=== PATIENT | male | born 1940 | race Caucasian/White ===

== ENCOUNTER 2021-07-25 09:47 | Emergency (ER) | payer MEDICARE, SELFPAY ==
--- NOTE | 2021-07-25 21:23 | EDS_ITS ---
HPI History of Present Illness Chief Complaint: Abscess Detail of Chief Complaint: Patient presents with an abscess to his back that he noted today Informant: patient Narrative Narrative: Patient presents to the emergency department concerned about a abscess to his back. Patient noticed some redness to the area and some mild discomfort. He is concerned about infection because he has a history of AML and is scheduled to receive a stem cell transplant at [facility] next week. Patient denies any fevers. Denies other illness. Prior similar symptoms: No ROS ROS ED Constitutional Constitutional ED: Reports systems reviewed and no addt'l complaints, except as documented; Denies body ache(s), change in weight or chills Eyes Eyes: Denies acute decrease in peripheral vision, change in vision, double vision or loss of vision ENT ENT ED: Reports none; Denies ear pain, lip swelling, loss taste/smell, neck pain, otalgia or sore throat Cardiovascular Cardiovascular: Reports none; Denies abdominal pain, chest pain with activity, leg edema, lightheadedness, palpitations, rapid heart rate or syncope Respiratory/Chest Respiratory/Chest: Reports none; Denies change in mental status, dry cough, dyspnea, hemoptysis, shortness of breath at rest or shortness of breath with exertion Gastrointestinal Gastrointestinal: Reports none; Denies abdominal pain, change in stool character, diarrhea, hematemesis, hematochezia, melena, rectal bleeding or vomiting Genitourinary Genitourinary ED: Reports none; Denies abdominal discomfort, anuria, dysuria, genital pain or polyuria Musculoskeletal Musculoskeletal: Reports none; Denies arthralgias, back pain, difficulty walking, extremity pain, muscle weakness or myalgias Integumentary Reports none, abscess and other Details: Abscess the back ; Denies rash Neurologic Neurologic: Reports none; Denies abnormal gait, confusion, focal weakness, frequent falls, headache(s), loss of vision, numbness, paresthesias, radicular pain, vertigo or weakness Psychiatric Psychiatric: Reports systems reviewed and no addt'l complaints, except as documented and none; Denies behavioral changes, confusion, difficulty concentrating, hallucinations, suicidal ideation, tactile hallucinations or visual hallucinations Endocrine Endocrinology: Denies none, cold intolerance, excessive sweating, fatigue or heat intolerance Hematologic/Lymphatic Hematologic/Lymphatic: Reports none; Denies anemia, easy bleeding or easy bruising Allergic/Immunologic Allergic/Immunologic ED: Denies as per HPI, none, lip swelling, mouth swelling, throat swelling, tongue swelling or hives EXAM Physical Exam Const Positive well nourished and well developed General Appearance ED: well developed and NAD HEENT Reports TM's clear and moist mucous membranes normocephalic and atraumatic; Negative for trauma or tenderness Tympanic Membrane ED: Yes TM's clear Eyes PERRL and EOMs intact bilaterally General Eye ED: Negative for pale conjunctiva or scleral icterus Neck no lymphadenopathy, supple and no JVD General: Negative for tenderness Chest Wall inspection of chest normal and palpation of chest normal Chest: Negative for tenderness Resp normal respiratory effort and clear to auscultation bilaterally Effort and Inspection: Negative for respiratory distress or pain with movement Auscultation: Negative for rhonchi, wheezes or diminished lung sounds Cardio regular rate, regular rhythm, S1 normal heart sound, S2 normal heart sound and no murmurs Peripheral Pulses: pulses 2+ throughout GI normal to inspection, nondistended, normoactive bowel sounds, soft to palpation, non-tender, non-distended and no masses Back/Spine no thoracic nor lumbar tenderness Back/Spine Narrative: Evaluation of his back reveals a sebaceous cyst over the mid thoracic spine that measures approximately 3 cm in diameter. There are some faint erythema inferior to this. There is some drainage noted from the central portion of the sebaceous cyst. With pressure I was able to express a large amount of purulent debris from the sebaceous cyst. Extremity normal to inspection General Extremety ED: Negative for edema General Extremity: Negative for edema Neuro oriented x3, CN's II-XII intact bilaterally, no sensory deficits noted and gait normal Sensorium / Orientation: awake, alert, oriented to person, oriented to place and oriented to time Motor Exam: strength 5/5 throughout and strength abnormal Psych mental status grossly normal Skin no rashes or lesions noted and no wounds MDM MDM MDM Narrative Medical decision making narrative: Patient has a sebaceous cyst that appears to be infected. I was able to express a large amount of purulent debris with just pressure. I did start patient on Keflex. Patient advised to let his physicians know about his visit today and the fact that he is on antibiotics. Patient advised to return if fever, increased pain, swelling, or condition should worsen anyway. Discharge Plan Triage Chief Complaint: Abscess ED Provider: Ungur,Remus Dx/Rx/DC Orders Clinical Impression: Infected sebaceous cyst Instructions: ED Abscess Incision And Drainage Primary Care Provider: Care Physician,No Primary Referrals: Care Physician,No Primary [Primary Care Provider] - Disposition Disposition: Home, Self Care
== END 2021-07-25 10:42 | disposition home or self-care (01) ==
PROVIDERS: Emergency Provider Emergency Medicine; Visit Provider Emergency Medicine
DX: L72.3 Sebaceous cyst (principal); C92.00 Acute myeloblastic leukemia, not having achieved remission
CPT/HCPCS: 99283

== ENCOUNTER → 2021-11-23 | Outpatient (CLI) | payer MEDICARE, SELFPAY | END | disposition home or self-care (01) | DX: C92.01 Acute myeloblastic leukemia, in remission (principal) | CPT/HCPCS: 96521 ==

== ENCOUNTER → 2021-12-07 | Outpatient (CLI) | payer MEDICARE, SELFPAY | END | disposition home or self-care (01) | LOC: MEDOUTP 08:54 | DX: C92.01 Acute myeloblastic leukemia, in remission (principal) | CPT/HCPCS: 96521 ==

== ENCOUNTER 2022-02-07 11:46 | Inpatient (IN) | payer MEDICARE, SELFPAY ==
[2022-02-07] VITALS (15 sets, daily range): BP systolic 130–165; BP diastolic 64–110; PULSE 78–97; RESP 16–18; TEMP 36.4–37.2; O2SAT 93–96; BMI 24.1; BMI 23.4
--- NOTE | 2022-02-07 11:50 | EKG12_ITS ---
Test Reason : POSS STROKE Blood Pressure : / mmHG Vent. Rate : 092 BPM Atrial Rate : 092 BPM P-R Int : 172 ms QRS Dur : 076 ms QT Int : 362 ms P-R-T Axes : 023 -43 030 degrees QTc Int : 447 ms Normal sinus rhythm Left axis deviation Inferior infarct , age undetermined Abnormal ECG No previous ECGs available Confirmed by REN BETHEA, SELIN ([id number]), legal editor ROBERT HUNTER ([id number]) on 02/09/2022 1:10:57 PM Referred By: Josué Beth Confirmed By:SELIN MCCLURE MD
--- NOTE | 2022-02-07 11:50 | CT_ITS ---
STUDY: CT HEAD STROKE PROTOCOL W/O CONTRAST INJECTION REASON FOR EXAM: Male, 82 years old. Neuro deficit, acute, stroke suspected RADIATION DOSAGE (If Supplied By Facility): CTDIvol = ( 44.99 ) mGy, DLP = ( 829.85 ) mGycm TECHNIQUE: Transaxial CT imaging of the brain was performed without administration of intravenous contrast material. Individualized dose optimization techniques were used for this CT. COMPARISON: No relevant priors. FINDINGS: Normal soft tissue structures. Normal calvarium. There is mild cerebral atrophy with widening of the extra-axial spaces and ventricular dilatation. Normal white matter tracts of the cerebral hemispheres. Focal area of decreased attenuation in the insular cortex of the right temporal lobe. Normal brainstem. There is mild cerebellar atrophy. There is no intracranial hemorrhage. There are no findings of an acute ischemic infarction. Atherosclerotic plaque formation of the cavernous portions of the internal carotid arteries bilaterally. Cavum septum lucidum. Normal visualized paranasal sinuses. ASPECT score: 9 CT/STROKE Brain/Head without Cont IMPRESSION: Chronic involutional changes of the brain. Focal area of decreased attenuation in the insular cortex of the right temporal lobe. N.B. : The above Results were Read Back by Brian Mcfarlane MD to Josué Ricci and understanding confirmed on 02/07/2022 12:06:06 (ET). Electronically Signed: Brian Mcfarlane MD at 12:07 EST ,
--- NOTE | 2022-02-07 11:51 | CT_ITS ---
STUDY: CTA HEAD AND NECK WITH CONTRAST REASON FOR EXAM: Male, 82 years old. Neuro deficit, acute, stroke suspected RADIATION DOSAGE (If Supplied By Facility): CTDIvol = ( 19.81 ) mGy, DLP = ( 740.65 ) mGycm TECHNIQUE: CT angiography was performed with a multi-detector CT scanner. Data acquisition was obtained from the skull base through the vertex following intravenous administration of IV 100mL [id number]-370. MIP images were reconstructed from the axial data set. Post-processing of the angiographic images was performed, with multiplanar reformation and 3D reconstruction. Individualized dose optimization techniques were used for this CT. COMPARISON: No relevant priors. FINDINGS: Normal bilateral petrous carotid arteries. There is calcified plaque formation of the right cavernous carotid artery, without a cross-sectional luminal stenosis. There is calcified plaque formation of the left cavernous carotid artery, without a cross-sectional luminal stenosis. Normal right A1 segments of the anterior cerebral artery. Normal left A1 segments of the anterior cerebral artery. Normal intact anterior communicating artery (ACOM). Normal bilateral A2 segments of the anterior cerebral arteries. Normal right M1 and M2 segments of the middle cerebral arteries, with a normal M1 bifurcation. Normal left M1 and M2 segments of the middle cerebral arteries, with a normal M1 bifurcation. Normal right posterior communicating artery (PCOM). Normal left posterior communicating artery (PCOM). Normal bilateral vertebral arteries. Normal basilar artery with a normal basilar bifurcation. The visualized bilateral superior cerebellar (SCA) arteries are normal. Normal bilateral P1, P2 and visualized P3 segments of the posterior cerebral arteries. There is no demonstrated aneurysm of the jena of Estevez. AORTIC ARCH: There is atherosclerotic calcific plaque formation of the aortic arch and great vessels arising from the aortic arch, without a hemodynamically significant stenosis. There is a normal origin of the brachiocephalic, left common carotid, and left subclavian arteries. Atherosclerotic plaque formation at the origin of the left internal carotid artery and left subclavian artery. RIGHT CAROTID ARTERIES: Normal right common carotid artery (CCA). Normal right common carotid bulb. There is mild atherosclerotic plaque formation of the origin of the right internal carotid artery with less than 50% cross sectional diameter stenosis. Normal visualized cervical portion of the right internal carotid artery. Normal origin of the right external carotid artery (ECA). LEFT CAROTID ARTERIES: Normal left common carotid artery (CCA). Normal left common carotid bulb. There is mild atherosclerotic plaque formation of the origin of the left internal carotid artery with less than 50% cross sectional diameter stenosis. Normal visualized cervical portion of the left internal carotid artery. Normal origin of the left external carotid artery (ECA). VERTEBRAL ARTERIES: Normal bilateral vertebral arteries. CT/STROKE CTA Head AND Neck W/Con IMPRESSION: Mild degree of bilateral scrotal compartment formation at the origin of the right and left internal carotid arteries. N.B. : The above Results were Read Back by Brian Mcfarlane MD to Josué Ricci and understanding confirmed on 02/07/2022 12:23:47 (ET). Electronically Signed: Brian Mcfarlane MD at 12:24 EST ,
--- NOTE | 2022-02-07 11:51 | ED.VIS.STROK ---
HPI History of Present Illness Chief Complaint: Neuro S/Sx Informant: patient Onset/Context/Timing Onset: Today Context: Sudden Onset Quality and Location: Positive for Left Arm Parasthesia and Left Arm Weakness (Hand) Onset: 10:30 AM Worsened by: Nothing Relieved by: Nothing Associated Symptoms Associated Symptoms: Negative for Headache, Nausea, Vomiting or Chest Pain Narrative Narrative: Patient presents with stroke symptoms that began this morning. Patient states he was sitting at a computer at 10:30 AM and fell asleep. Patient states that he was only asleep for a few minutes but when he woke up he had difficulty using his left hand. Patient states this has been persistent. Patient also admits to some left facial weakness. Patient denies any headaches. Patient denies any chest pain or shortness of breath. Patient denies any nausea or vomiting. Patient denies any weakness or difficulty using his left lower extremity. Patient denies any weakness on the right side. [facility] Medical History (Updated 02/07/22 @ 14:[address] Josué Ricci, DO) History of acute myeloid leukemia Home Medications acyclovir 800 mg tablet 800 mg PO BID Check with primary doctor 12/30/21 [History Last Taken 02/07/22] atovaquone 750 mg/5 mL oral suspension 750 mg PO DAILY chest 12/30/21 [History Last Taken 02/07/22] budesonide 3 mg capsule,delayed,extended release 3 mg PO DAILY GI 12/30/21 [History Last Taken 02/07/22] buprenorphine 20 mcg/hour weekly transdermal patch 1 patch transdermal Q7D hip 12/30/21 [History Last Taken 02/02/22] calcium carbonate 600 mg-vitamin D3 10 mcg (400 unit) chewable tablet (Calcium 600 with Vitamin D3) 1 tab PO DAILY supplement 12/30/21 [History Last Taken 02/07/22] carvedilol 6.25 mg tablet 6.25 mg PO BID heart 12/30/21 [History Last Taken 02/07/22] cholecalciferol (vitamin D3) 25 mcg (1,000 unit) capsule 25 mcg PO DAILY supplement 12/30/21 [History Last Taken 02/07/22] diclofenac sodium 1 % topical gel 4 g topical ONCE joint pain 12/30/21 [History Last Taken 02/07/22] hydrocodone 10 mg-acetaminophen 325 mg tablet 1 tab PO Q4H PRN PRN Pain 12/30/21 [History Last Taken 02/07/22] lidocaine HCl 4 % topical patch 1 patch topical DAILY PRN hip 12/30/21 [History Last Taken 02/07/22] magnesium oxide-magnesium amino acid chelate 133 mg tablet 133 mg PO TID supplement 12/30/21 [History Last Taken 02/07/22] peg 3350 17 gram/scoop-sodium chloride-potassium citrate oral kit 1 ea PO DAILY constipation 12/30/21 [History Last Taken Unknown] pravastatin 10 mg tablet 10 mg PO DAILY cholesterol 12/30/21 [History Last Taken 02/06/22] rivaroxaban 10 mg tablet 10 mg PO DAILY blood thinner 12/30/21 [History Last Taken 02/06/22] tacrolimus 0.5 mg capsule, immediate-release 1 mg PO BID Stem cell 12/30/21 [History Last Taken 02/07/22] tamsulosin 0.4 mg capsule 0.4 mg PO DAILY bladder 12/30/21 [History Last Taken 02/07/22] vitamin B complex (B Complex-Vitamin B12 tablet) 1 tab PO DAILY supplement 12/30/21 [History Last Taken 02/07/22] Allergy/AdvReac Type Severity Reaction Status Date / Time Sulfa (Sulfonamide Allergy Other Verified 12/30/21 14:24 Antibiotics) Surgical History (Updated 02/07/22 @ 11:[address] Josué Ricci DO) H/O stem cell transplant Social History Smoking Status: Never smoker ROS ROS ED Constitutional Constitutional ED: Denies chills or fever(s) Eyes Eyes: Denies blurry vision or change in vision ENT ENT ED: Denies rhinorrhea or sore throat Cardiovascular Cardiovascular: Denies chest pain or palpitations Respiratory/Chest Respiratory/Chest: Denies cough or dyspnea Gastrointestinal Gastrointestinal: Denies nausea or vomiting Genitourinary Genitourinary ED: Denies dysuria or hematuria Musculoskeletal Musculoskeletal: Denies back pain or neck pain Integumentary Denies abscess or rash Neurologic Neurologic: Reports weakness; Denies headache(s) Allergic/Immunologic Allergic/Immunologic ED: Denies mouth swelling or urticaria EXAM Physical Exam Const Vital Signs: 02/07/22 11:48 02/07/22 12:03 02/07/22 12:03 Temperature 97.8 F Temperature Source Temporal Pulse Rate 93 Respiratory Rate 18 Blood Pressure 146/110 H 157/91 H Blood Pressure Mean 122 113 Pulse Ox 96 96 Oxygen Delivery Method Room Air Room Air 02/07/22 12:06 02/07/22 12:30 02/07/22 13:00 Temperature 97.6 F L Temperature Source Temporal Pulse Rate 94 89 85 Respiratory Rate 18 16 17 Blood Pressure 165/95 H 136/91 H Blood Pressure Mean 118 106 Pulse Ox 96 96 95 Oxygen Delivery Method Room Air Room Air Room Air 02/07/22 13:00 02/07/22 13:30 02/07/22 14:00 Temperature Temperature Source Pulse Rate 80 88 Respiratory Rate 17 18 Blood Pressure 130/74 H 146/87 H Blood Pressure Mean 92 106 Pulse Ox 95 96 95 Oxygen Delivery Method Room Air Room Air Room Air Positive well nourished and well developed General Appearance ED: well developed and NAD HEENT Reports moist mucous membranes atraumatic Neck supple and no JVD Resp normal respiratory effort and clear to auscultation bilaterally Cardio Rate: regular rate Rhythm: regular rhythm GI normal to inspection, nondistended, normoactive bowel sounds, soft to palpation and non-tender Extremity normal to inspection Neuro oriented x3 and CN's II-XII intact bilaterally [place] Coma Scale: document GCS findings Spontaneous Obeys Commands Oriented 15 Sensorium / Orientation: alert Speech: speech normal NIHSS NIHSS Initial: 1a Level of Consciousness: 0 1b LOC Questions (Score 2 if aphasic/stupor): 0 1c LOC Commands (Only score 1st attempt): 0 2 Best Gaze (If aphasic, use reflexive mvmts.): 0 3 Visual: 0 4 Facial Palsy: 1 5 Motor Arm Right (UN = amputation/fusion): 0 5 Motor Arm Left: 1 6 Motor Leg Right: 0 6 Motor Leg Left: 0 7 Limb ataxia (Only + if out of proportion): 0 8 Sensory (Aphasia/stupor=0 or 1, coma=2): 0 9 Best Language: 0 10 Dysarthria (mute, coma=2, intubated=UN): 0 11 Extinction and Inattention (only scored if +): 0 Total Score: 2 MDM MDM MDM Narrative Medical decision making narrative: Stroke alert was called. CT scan of the brain was obtained. There is a focal area of decreased attenuation in the insular cortex of the right temporal lobe. This was interpreted by the radiologist and reviewed by myself. CTA of the head and neck was obtained. There is mild atherosclerotic plaque of the bilateral internal carotids less than 50%. There is no acute large vessel occlusion. EKG was obtained. On my interpretation, it showed a normal sinus rhythm with a rate of 92. LA interval, QRS interval, and QTc intervals were all normal. There is left axis deviation at -43. There are no acute ST or T wave changes. CBC shows a mild anemia with a hemoglobin of 9.5 and hematocrit 29.1. White blood cell count was within normal limits. Basic metabolic profile showed a sodium of 135. High-sensitivity troponin was normal at 30. Initial BGT was 145. PT was 15.8. INR is 1.3. PTT is 31.3. Portable 1 view chest x-ray was obtained. On my interpretation, lung ozuna show scarring at the lung bases bilaterally, worse on the left. There is normal cardiac silhouette. Bony thorax is normal. There is no acute process noted. Radiologist also interpreted the x-ray and agrees. Patient is not a candidate for thrombolytic therapy due to the low NIH plus he is on Xarelto. Patient was evaluated by stroke neurology from [facility]. They recommended admission to the hospital here for further evaluation and MRI. Patient and are agreeable with this. Case was discussed with the hospitalist. She will admit the patient to PCU. Case was also discussed with his provider at the [facility]. She stated that the patient will be able to take all of his medications that he normally takes at home. She states that none of his medications need to be adjusted at this time. Lab Data Attestation: I reviewed the patient's lab results. Labs: Laboratory Results - last 24 hr 02/07/22 02/07/22 02/07/22 11:47 11:55 11:55 WBC 8.2 RBC 2.96 L Hgb 9.5 L Hct 29.1 L MCV 98.3 H MCH 32.1 H MCHC 32.6 RDW Std Deviation 56.0 H RDW Coeff of Demario 15.6 H Plt Count 332 MPV 8.6 Immature Gran % (Auto) 3.200 H Neut % (Auto) 81.1 H Lymph % (Auto) 6.8 L Gilmer % (Auto) 5.6 Eos % (Auto) 2.8 Baso % (Auto) 0.5 Absolute Neuts (auto) 6.7 Absolute Lymphs (auto) 0.56 L Nucleated RBC % 0 Differential Comment COMMENT PT INR APTT Sodium 135 L Potassium 4.1 Chloride 105 Carbon Dioxide 25.0 Anion Gap 5 BUN 26 H Creatinine 1.12 Estim Creat Clear Calc 50.89 Est GFR (MDRD) Af Amer 81 Est GFR (MDRD) Non-Af 67 BUN/Creatinine Ratio 23.2 H Glucose 142 H Calcium 8.6 Troponin I High Sens 30 POC Glucose 145 H 02/07/22 12:04 WBC RBC Hgb Hct MCV MCH MCHC RDW Std Deviation RDW Coeff of Demario Plt Count MPV Immature Gran % (Auto) Neut % (Auto) Lymph % (Auto) Gilmer % (Auto) Eos % (Auto) Baso % (Auto) Absolute Neuts (auto) Absolute Lymphs (auto) Nucleated RBC % Differential Comment PT 15.8 H INR 1.3 APTT 31.3 Sodium Potassium Chloride Carbon Dioxide Anion Gap BUN Creatinine Estim Creat Clear Calc Est GFR (MDRD) Af Amer Est GFR (MDRD) Non-Af BUN/Creatinine Ratio Glucose Calcium Troponin I High Sens POC Glucose Radiography Diagnostic Testing: Clinical Impression(s) from Imaging Studies Brain CT 02/07/22 11:50 IMPRESSION: Chronic involutional changes of the brain. Focal area of decreased attenuation in the insular cortex of the right temporal lobe. N.B. : The above Results were Read Back by Brian Mcfarlane MD to Josué Ricci and understanding confirmed on 02/07/2022 12:06:06 (ET). Electronically Signed: Brian Mcfarlane MD at 12:07 EST , ADDENDUM: 02/07/22 1214 IMPRESSION: Chronic involutional changes of the brain. Focal area of decreased attenuation in the insular cortex of the right temporal lobe. N.B. : The above Results were Read Back by Brian Mcfarlane MD to Josué Ricci and understanding confirmed on 02/07/2022 12:06:06 (ET). Electronically Signed: Brian Mcfarlane MD at 12:07 EST , Head/Neck CTA 02/07/22 11:51 IMPRESSION: Mild degree of bilateral scrotal compartment formation at the origin of the right and left internal carotid arteries. N.B. : The above Results were Read Back by Brian Mcfarlane MD to Josué Ricci and understanding confirmed on 02/07/2022 12:23:47 (ET). Electronically Signed: Brian Mcfarlane MD at 12:24 EST , ADDENDUM: 02/07/22 1231 IMPRESSION: Mild degree of bilateral scrotal compartment formation at the origin of the right and left internal carotid arteries. N.B. : The above Results were Read Back by Brian Mcfarlane MD to Josué Ricci and understanding confirmed on 02/07/2022 12:23:47 (ET). Electronically Signed: Brian Mcfarlane MD at 12:24 EST , Chest X-Ray 02/07/22 12:55 IMPRESSION: 5 suggestive scarring at the left lung base with areas of bronchiectasis. Findings also suggest some scarring in the peripheral lateral aspect of the right lung. Electronically Signed: Brian Mfcarlane MD at 13:17 EST , EKG Initial EKG: Attestation: I personally reviewed and interpreted this EKG as follows: Interpretation: Sinus Rhythm (92) and No Acute Injury Pattern Prior EKG tracings: not available for review Prior: No Prior Critical Care Time Critical Care Time: Yes Critical care time (excluding procedures): 30-74 minutes (33), Including time spent:, Discussing w/Patient &/or Family/Material Reprocessing Associate, Discussing w/Consultants, Arranging Admission or Transfer and Performing Direct Patient Care at Bedside Discharge Plan Dx/Rx/DC Orders Clinical Impression: Stroke, Leukemia Disposition Disposition: Acute Care Hospital [facility]
[2022-02-07 12:02] LABS: Absolute Lymphocyte Count 0.56 X10^3/uL (0.83-4.51); Absolute Neutrophil Count 6.7 X10^3/uL (2.0-7.7); Basophil# 0.04 X10^3/uL; Basophil% 0.5 % (0-1); Differential Indicated SCAN CRITERIA MET; Eosinophil# 0.23 X10^3/uL; Eosinophils% 2.8 % (0-5); Hematocrit 29.1 % (40-54); Hemoglobin 9.5 g/dL (13.0-16.5); Lymphocyte # 0.56 X10^3/ul (0.83-4.51); Lymphocyte % 6.8 % (19-41); Mean Corp Hgb Conc 32.6 g/dL (32-36); Mean Corpuscular Hgb 32.1 pg (27.0-32.0); Mean Corpuscular Volume 98.3 fL (80-94); Mean Platelet Vol. 8.6 fl (6.2-12.0); Monocyte# 0.46 X10^3/uL; Monocyte% 5.6 % (0-10); NRBC Flagged by Analyzer 0 % (0-5); Neutrophil # 6.68 X10^3/uL (2.7-7.7); Neutrophil % 81.1 % (47-70); POSITIVE DIFFERENTIAL YES; Platelet Count 332 K/mm3 (150-450); RBC Distribution Width CV 15.6 % (11.6-14.6); Red Blood Count 2.96 M/mm3 (4.6-6.2); White Blood Count 8.2 K/mm3 (4.4-11.0)
--- NOTE | 2022-02-07 12:06 | CM.ED ---
SW Note SW responded to Stroke Alert. Introduced this typewriter tester to patient's , who was in the room. Emotional support provided. SW remains available if needs arise. Julia MARQUEZ
[2022-02-07 12:17] LABS: Anion Gap 5 (5-15); BUN 26 mg/dL (7-18); BUN/Creat Ratio 23.2 RATIO (10-20); Calcium,Total 8.6 mg/dL (8.5-10.1); Chloride 105 mmol/L (98-107); Creatinine, Serum 1.12 mg/dL (0.70-1.30); EST Glomerular Filtration Rate 67 mL/min (>60); Est Glom Filt Rate - Afr Amer 81 mL/min (>60); Estimated Creatinine Clearance 50.89 ml/min; Glucose 142 mg/dL (74-106); Potassium 4.1 mmol/L (3.5-5.1); Sodium Level 135 mmol/L (136-145); Troponin-I HS 30 pg/mL (3.0-78.0)
[2022-02-07 12:20] LABS: International Normalized Ratio 1.3; Prothrombin Time (Protime)PT. 15.8 SECONDS (11.7-14.9)
[2022-02-07 12:21] LABS: Partial Thromboplast Time 31.3 Seconds (24.1-36.2)
--- NOTE | 2022-02-07 12:55 | RAD_ITS ---
STUDY: X-RAY CHEST REASON FOR EXAM: Male, 82 years old. Neuro deficit, acute, stroke suspected TECHNIQUE: Single AP portable view of the chest. COMPARISON: None. FINDINGS: EKG electrodes are seen. Elevation of the right hemidiaphragm. There are increased markings at the left lung base. This is suggestive scarring with bronchiectasis. Mild increased markings are also seen in the peripheral lateral aspect of the right lung. Normal size heart. Normal mediastinum and lesley. Normal visualized pulmonary arteries. There is atherosclerotic calcification of the aortic arch with tortuosity. There are diffuse degenerative changes of the visualized thoracic spine. There is degenerative osteoarthritis of the bilateral shoulders. There is no demonstrated abnormality of the visualized soft tissue structures of the upper abdomen. RAD/Chest 1 View IMPRESSION: 5 suggestive scarring at the left lung base with areas of bronchiectasis. Findings also suggest some scarring in the peripheral lateral aspect of the right lung. Electronically Signed: Brian Mcfarlane MD at 13:17 EST ,
[2022-02-07 13:20] LABS: Bedside Glucose 145 mg/dL (74-106)
--- NOTE | 2022-02-07 14:24 | PCM.HP.STD ---
HPI - General General Date of Admission: 02/07/22 Date of Service: 02/07/22 Chief Complaint: Left upper extremity numbness - 1 day HPI Narrative MELLO SOLIZ, is a 82 M who presents above. Patient has past medical history of leukemia status post stem cell transplant, on tacrolimus, h/o VTE, on Xarelto, who was in his usual state of health until this morning(about 10:30 AM) when whilst he was sitting by his computer for a Zoom meeting, he fell asleep. Patient stated that he fell asleep for a few minutes. He woke up and had tingling numbness in his left upper extremity as well as a left facial droop. This lasted for few minutes and then went away. At the time of being seen, patient denied any tingling or numbness. His initial vitals in the ED showed blood pressure 146/110, heart rate 93, respiratory rate 18, temperature 97.8 F, oxygen sat was 96% on room air. His WBC count 8.2, hemoglobin 9.5, platelet count was 332. Sodium was 135 potassium 4.1, chloride 105, Coumadin 5, BUN 26, creatinine 1.12, no previous creatinine to compare. Troponin is 30. EKG shows normal sinus rhythm, no acute ST-T changes. Initial brain CT showed a focal area of decreased attenuation in the insular cortex of the right temporal lobe. CTA of the neck shows mild plaque less than 50% in the right internal carotid artery. Chest x-ray shows areas of scarring in the left lung base with bronchiectasis as well as the peripheral lateral aspect of the right lung. [facility] Medical History History of acute myeloid leukemia Home Medications acyclovir 800 mg tablet 800 mg PO BID Check with primary doctor 12/30/21 [History Last Taken 02/07/22] atovaquone 750 mg/5 mL oral suspension 750 mg PO DAILY chest 12/30/21 [History Last Taken 02/07/22] budesonide 3 mg capsule,delayed,extended release 3 mg PO DAILY GI 12/30/21 [History Last Taken 02/07/22] buprenorphine 20 mcg/hour weekly transdermal patch 1 patch transdermal Q7D hip 12/30/21 [History Last Taken 02/02/22] calcium carbonate 600 mg-vitamin D3 10 mcg (400 unit) chewable tablet (Calcium 600 with Vitamin D3) 1 tab PO DAILY supplement 12/30/21 [History Last Taken 02/07/22] carvedilol 6.25 mg tablet 6.25 mg PO BID heart 12/30/21 [History Last Taken 02/07/22] cholecalciferol (vitamin D3) 25 mcg (1,000 unit) capsule 25 mcg PO DAILY supplement 12/30/21 [History Last Taken 02/07/22] diclofenac sodium 1 % topical gel 4 g topical ONCE joint pain 12/30/21 [History Last Taken 02/07/22] hydrocodone 10 mg-acetaminophen 325 mg tablet 1 tab PO Q4H PRN PRN Pain 12/30/21 [History Last Taken 02/07/22] lidocaine HCl 4 % topical patch 1 patch topical DAILY PRN hip 12/30/21 [History Last Taken 02/07/22] magnesium oxide-magnesium amino acid chelate 133 mg tablet 133 mg PO TID supplement 12/30/21 [History Last Taken 02/07/22] peg 3350 17 gram/scoop-sodium chloride-potassium citrate oral kit 1 ea PO DAILY constipation 12/30/21 [History Last Taken Unknown] pravastatin 10 mg tablet 10 mg PO DAILY cholesterol 12/30/21 [History Last Taken 02/06/22] rivaroxaban 10 mg tablet 10 mg PO DAILY blood thinner 12/30/21 [History Last Taken 02/06/22] tacrolimus 0.5 mg capsule, immediate-release 1 mg PO BID Stem cell 12/30/21 [History Last Taken 02/07/22] tamsulosin 0.4 mg capsule 0.4 mg PO DAILY bladder 12/30/21 [History Last Taken 02/07/22] vitamin B complex (B Complex-Vitamin B12 tablet) 1 tab PO DAILY supplement 12/30/21 [History Last Taken 02/07/22] Allergy/AdvReac Type Severity Reaction Status Date / Time Sulfa (Sulfonamide Allergy Other Verified 12/30/21 14:24 Antibiotics) Family History no significant family his no significant family history Surgical History H/O stem cell transplant Social History (Updated 02/07/22 @ 15:[address] Vicenta Sullivan MD) Smoking Status: Never smoker alcohol intake: former substance use type: does not use ROS ROS Narrative Constitutional: Denies: Anorexia, Chills, Fever, Night Sweats, Weight Change Eyes: Denies: Blurred vision, Cataracts, Conjunctivae Inflammation, Pain, Redness, Vision Change HEENT: Denies: Difficulty Hearing, Difficulty Swallowing, Head Aches, Hearing Changes, Sinus Congestion, Sinus Drainage Cardiovascular: Denies: Chest Pain, Orthopnea, Palpitations Respiratory: Denies: Cough, Shortness of breath at rest, Sputum production Gastrointestinal: Denies: Abdominal Pain, Nausea, Vomiting Genitourinary: Denies: Dysuria Musculoskeletal: Denies: Joint Pain, Joint stiffness, Joint swelling, Joint Tenderness Skin: Denies: Rash, Wounds Neurological: See HPI Vital Signs Vital Signs Vital Signs: 02/07/22 11:48 02/07/22 12:03 02/07/22 12:03 Temperature 97.8 F Temperature Source Temporal Pulse Rate 93 Respiratory Rate 18 Blood Pressure 146/110 H 157/91 H Blood Pressure Mean 122 113 Pulse Ox 96 96 Oxygen Delivery Method Room Air Room Air 02/07/22 12:06 02/07/22 12:30 02/07/22 13:00 Temperature 97.6 F L Temperature Source Temporal Pulse Rate 94 89 85 Respiratory Rate 18 16 17 Blood Pressure 165/95 H 136/91 H Blood Pressure Mean 118 106 Pulse Ox 96 96 95 Oxygen Delivery Method Room Air Room Air Room Air 02/07/22 13:00 02/07/22 13:30 02/07/22 14:00 Temperature Temperature Source Pulse Rate 80 88 Respiratory Rate 17 18 Blood Pressure 130/74 H 146/87 H Blood Pressure Mean 92 106 Pulse Ox 95 96 95 Oxygen Delivery Method Room Air Room Air Room Air 02/07/22 14:16 Temperature Temperature Source Pulse Rate Respiratory Rate 18 Blood Pressure Blood Pressure Mean Pulse Ox Oxygen Delivery Method Weight Weight: 71.985 kg Body Mass Index (BMI) 24.1 Physical Exam Narrative Physical exam: General: Alert, Oriented x3, Cooperative, not jaundiced, not pale HEENT: Atraumatic Oral: Moist Mucosa Neck: Supple Lungs: Diminished to auscultation Cardiovascular: HS I+II, regular, no murmurs Abdomen: Bowel Sounds Present, Soft, Non Tender Extremities: No edema Skin: No rashes, No breakdown Neurological: Cranial nerve II to XII intact except for slight left facial droop, otherwise grossly intact Psych/Mental Status: Appropriate Results Lab / Micro Data Result Diagrams: 02/07/22 11:55 02/07/22 11:55 Labs: Laboratory Results - last 24 hr 02/07/22 11:47: POC Glucose 145 H 02/07/22 11:55: WBC 8.2, RBC 2.96 L, Hgb 9.5 L, Hct 29.1 L, MCV 98.3 H, MCH 32.1 H, MCHC 32.6, RDW Std Deviation 56.0 H, RDW Coeff of Demario 15.6 H, Plt Count 332, MPV 8.6, Immature Gran % (Auto) 3.200 H, Neut % (Auto) 81.1 H, Lymph % (Auto) 6.8 L, [place] % (Auto) 5.6, Eos % (Auto) 2.8, Baso % (Auto) 0.5, Absolute Neuts (auto) 6.7, Absolute Lymphs (auto) 0.56 L, Nucleated RBC % 0, Differential Comment COMMENT 02/07/22 11:55: Sodium 135 L, Potassium 4.1, Chloride 105, Carbon Dioxide 25.0, Anion Gap 5, BUN 26 H, Creatinine 1.12, Estim Creat Clear Calc 50.89, Est GFR (MDRD) Af Amer 81, Est GFR (MDRD) Non-Af 67, BUN/Creatinine Ratio 23.2 H, Glucose 142 H, Calcium 8.6, Troponin I High Sens 30 02/07/22 12:04: PT 15.8 H, INR 1.3, APTT 31.[address] 02/07/22 11:50 IMPRESSION: Chronic involutional changes of the brain. Focal area of decreased attenuation in the insular cortex of the right temporal lobe. N.B. : The above Results were Read Back by Brian Mcfarlane MD to Josué Ricci and understanding confirmed on 02/07/2022 12:06:06 (ET). Electronically Signed: Brian Mcfarlane MD at 12:07 EST , ADDENDUM: 02/07/22 1214 IMPRESSION: Chronic involutional changes of the brain. Focal area of decreased attenuation in the insular cortex of the right temporal lobe. N.B. : The above Results were Read Back by Brian Mcfarlane MD to Josué Ricci and understanding confirmed on 02/07/2022 12:06:06 (ET). Electronically Signed: Brian Mcfarlane MD at 12:07 EST , Head/Neck CTA 02/07/22 11:51 IMPRESSION: Mild degree of bilateral scrotal compartment formation at the origin of the right and left internal carotid arteries. N.B. : The above Results were Read Back by Brian Mcfarlane MD to Josué Ricci and understanding confirmed on 02/07/2022 12:23:47 (ET). Electronically Signed: Brian Mcfarlane MD at 12:24 EST , ADDENDUM: 02/07/22 1231 IMPRESSION: Mild degree of bilateral scrotal compartment formation at the origin of the right and left internal carotid arteries. N.B. : The above Results were Read Back by Brian Mcfarlane MD to Josué Ricci and understanding confirmed on 02/07/2022 12:23:47 (ET). Electronically Signed: Brian Mcfarlane MD at 12:24 EST , Chest X-Ray 02/07/22 12:55 IMPRESSION: 5 suggestive scarring at the left lung base with areas of bronchiectasis. Findings also suggest some scarring in the peripheral lateral aspect of the right lung. Electronically Signed: Brian Mcfarlane MD at 13:17 EST , Assessment & Plan Assessment/Plan (1) Stroke: PLAN: Plan 1. Acute onset of left upper extremity numbness, likely secondary to acute CVA Not a TPA candidate; on Xarelto Patient's symptoms appears to have resolved by the time being admitted CT of the brain showed focal area of decreased attenuation in the insular cortex of the right temporal lobe CTA of the head and neck shows minimal plaque in the right carotid artery 2D echo done in July 2021 in [facility](seen in [facility]) showed EF 55% Will admit to PCU, monitor on telemetry MRI of the brain, Lipid profile in am, HbA1c Add aspirin, patient already on Xarelto 2. Hypertension, will hold carvedilol to allow for permissive hypertension Will resume carvedilol later on per protocol 3. Hyperlipidemia, continue statin, recheck lipids in a.m. 4. History of leukemia status post stem cell transplant Continue on acyclovir, atovaquone 5. BPH, continue Flomax 6. H/o VTE, on Xarelto 7. DVT PPx- On Xarelto Charges/Coding Visit Charges Inpatient E&M: 72091 Init Hosp L3
[2022-02-07 15:50] LABS: AST(SGOT) 17 U/L (15-37); Alanine Aminotransfer ALT/SGPT 28 U/L (16-61); Albumin, Serum 2.9 g/dL (3.2-5.0); Alkaline Phosphatase 82 U/L (45-117); Bilirubin, Direct 0.16 mg/dL (0.00-0.30); Globulin 3.8 g/dL (2.2-4.2); Protein, Total 6.7 g/dL (6.4-8.2)
[2022-02-07 15:54] LABS: Hemoglobin A1c 6.2 % (3.8-5.6)
[2022-02-07 17:12] LABS: Ferritin 156 ng/mL (26-388); Iron 28 ug/dL (65-175); Iron Binding Capacity,Total 245 ug/dL (250-450); PERCENT IRON SATURATION 11.4 % (15.0-55.0)
[2022-02-07] MEDS: Famotidine 20 MG Tablet PO ×2 (18:23→22:03)
[2022-02-07] MEDS: Pravastatin 40 MG Tablet PO (22:03)
[2022-02-07] MEDS: Tacrolimus Anhydrous 1 MG Capsule PO (22:03)
[2022-02-07] MEDS: Acyclovir 800 MG Tablet PO (22:03)
[2022-02-08 03:04] VITALS: BP 152/99; PULSE 85; RESP 18; TEMP 37.3; O2SAT 98
[2022-02-08 05:00] VITALS: PULSE 81
[2022-02-08 06:35] LABS: Absolute Lymphocyte Count 0.72 X10^3/uL (0.83-4.51); Absolute Neutrophil Count 5.1 X10^3/uL (2.0-7.7); Basophil# 0.03 X10^3/uL; Basophil% 0.4 % (0-1); Eosinophils% 5.8 % (0-5); Hematocrit 28.6 % (40-54); Hemoglobin 9.5 g/dL (13.0-16.5); Lymphocyte # 0.72 X10^3/ul (0.83-4.51); Lymphocyte % 10.4 % (19-41); Mean Corp Hgb Conc 33.2 g/dL (32-36); Mean Corpuscular Hgb 32.1 pg (27.0-32.0); Mean Corpuscular Volume 96.6 fL (80-94); Monocyte# 0.62 X10^3/uL; NRBC Flagged by Analyzer 0 % (0-5); Neutrophil % 73.7 % (47-70); Platelet Count 349 K/mm3 (150-450); RBC Distribution Width CV 15.5 % (11.6-14.6); RBC Distribution Width SD 54.9 fl (35.1-43.9); Red Blood Count 2.96 M/mm3 (4.6-6.2); White Blood Count 6.9 K/mm3 (4.4-11.0)
[2022-02-08 06:36] VITALS: BP 160/92; PULSE 88; RESP 18; TEMP 36.7; O2SAT 93
[2022-02-08 07:00] VITALS: PULSE 89
[2022-02-08 07:13] LABS: ALB/GLOB Ratio 0.7 RATIO (0.9-2.4); AST(SGOT) 15 U/L (15-37); Alanine Aminotransfer ALT/SGPT 28 U/L (16-61); Albumin, Serum 2.6 g/dL (3.2-5.0); Alkaline Phosphatase 71 U/L (45-117); Anion Gap 9 (5-15); BUN 22 mg/dL (7-18); BUN/Creat Ratio 22.7 RATIO (10-20); Calcium,Total 8.2 mg/dL (8.5-10.1); Chloride 104 mmol/L (98-107); Cholesterol 145 mg/dL (200); Creatinine, Serum 0.97 mg/dL (0.70-1.30); EST Glomerular Filtration Rate 79 mL/min (>60); Est Glom Filt Rate - Afr Amer 96 mL/min (>60); Estimated Creatinine Clearance 58.76 ml/min; Globulin 3.6 g/dL (2.2-4.2); Glucose 91 mg/dL (74-106); High Density Lipoprotein 57 mg/dL; Potassium 3.8 mmol/L (3.5-5.1); Protein, Total 6.2 g/dL (6.4-8.2); Sodium Level 137 mmol/L (136-145); Triglycerides 60 mg/dL; Very Low Density Lipoprotein 12 mg/dL (5-40)
[2022-02-08 07:58] VITALS: O2SAT 92
--- NOTE | 2022-02-08 08:16 | PN.HOSP_ITS ---
Subjective Subjective Still has some numbness in his left upper extremity Objective Data Objective Data Vital Signs: Vital Signs Temp Pulse Resp BP Pulse Ox O2 Del Method 36.7 C 89 18 160/92 H 92 Room Air 02/08/22 06:36 02/08/22 07:00 02/08/22 06:36 02/08/22 06:36 02/08/22 07:58 02/08/22 07:58 Oxygen Delivery Method Room Air Weight: 70.2 kg Body Mass Index (BMI) 23.4 Intake & Output: Intake and Output for Last 24 Hours 02/06/22 02/07/22 02/08/22 23:59 23:59 23:59 Intake Total 500 / 500 Balance 500 / 500 Lab / Micro Data Result Diagrams: 02/08/22 05:23 02/08/22 05:23 Labs: Laboratory Results - last 24 hr 02/07/22 11:47: POC Glucose 145 H 02/07/22 11:55: WBC 8.2, RBC 2.96 L, Hgb 9.5 L, Hct 29.1 L, MCV 98.3 H, MCH 32.1 H, MCHC 32.6, RDW Std Deviation 56.0 H, RDW Coeff of Demario 15.6 H, Plt Count 332, MPV 8.6, Immature Gran % (Auto) 3.200 H, Neut % (Auto) 81.1 H, Lymph % (Auto) 6.8 L, [place] % (Auto) 5.6, Eos % (Auto) 2.8, Baso % (Auto) 0.5, Absolute Neuts (auto) 6.7, Absolute Lymphs (auto) 0.56 L, Nucleated RBC % 0, Differential Comment COMMENT 02/07/22 11:55: Sodium 135 L, Potassium 4.1, Chloride 105, Carbon Dioxide 25.0, Anion Gap 5, BUN 26 H, Creatinine 1.12, Estim Creat Clear Calc 50.89, Est GFR (MDRD) Af Amer 81, Est GFR (MDRD) Non-Af 67, BUN/Creatinine Ratio 23.2 H, Glucose 142 H, Calcium 8.6, Troponin I High Sens 30 02/07/22 11:55: Total Bilirubin 0.50, Direct Bilirubin 0.16, AST 17, ALT 28, Alkaline Phosphatase 82, Total Protein 6.7, Albumin 2.9 L, Globulin 3.8 02/07/22 11:55: Hemoglobin A1c 6.2 H 02/07/22 11:55: Iron 28 L, TIBC 245 L, Iron Saturation 11.4 L, Ferritin 156 02/07/22 12:04: PT 15.8 H, INR 1.3, APTT 31.3 02/08/22 05:23: WBC 6.9, RBC 2.96 L, Hgb 9.5 L, Hct 28.6 L, MCV 96.6 H, MCH 32.1 H, MCHC 33.2, RDW Std Deviation 54.9 H, RDW Coeff of Demario 15.5 H, Plt Count 349, MPV 9.0, Immature Gran % (Auto) 0.700, Neut % (Auto) 73.7 H, Lymph % (Auto) 10.4 L, [place] % (Auto) 9.0, Eos % (Auto) 5.8 H, Baso % (Auto) 0.4, Absolute Neuts (auto) 5.1, Absolute Lymphs (auto) 0.72 L, Nucleated RBC % 0 02/08/22 05:23: Sodium 137, Potassium 3.8, Chloride 104, Carbon Dioxide 24.0, Anion Gap 9, BUN 22 H, Creatinine 0.97, Estim Creat Clear Calc 58.76, Est GFR (MDRD) Af Amer 96, Est GFR (MDRD) Non-Af 79, BUN/Creatinine Ratio 22.7 H, Glucose 91, Calcium 8.2 L, Total Bilirubin 0.40, AST 15, ALT 28, Alkaline Phosphatase 71, Total Protein 6.2 L, Albumin 2.6 L, Globulin 3.6, Albumin/Globulin Ratio 0.7 L, Triglycerides 60, Cholesterol 145, LDL Cholesterol 76, VLDL Cholesterol 12, HDL Cholesterol 57 Radiography Diagnostic Testing: Radiology Impression Brain CT 02/07/22 11:50 IMPRESSION: Chronic involutional changes of the brain. Focal area of decreased attenuation in the insular cortex of the right temporal lobe. N.B. : The above Results were Read Back by Brian Mcfarlane MD to Josué Ricci and understanding confirmed on 02/07/2022 12:06:06 (ET). Electronically Signed: Brian Mcfarlane MD at 12:07 EST , ADDENDUM: 02/07/22 1214 IMPRESSION: Chronic involutional changes of the brain. Focal area of decreased attenuation in the insular cortex of the right temporal lobe. N.B. : The above Results were Read Back by Brian Mcfarlane MD to Josué Ricci and understanding confirmed on 02/07/2022 12:06:06 (ET). Electronically Signed: Brian Mcfarlane MD at 12:07 EST , Head/Neck CTA 02/07/22 11:51 IMPRESSION: Mild degree of bilateral scrotal compartment formation at the origin of the right and left internal carotid arteries. N.B. : The above Results were Read Back by Brian Mcfarlane MD to Josué Ricci and understanding confirmed on 02/07/2022 12:23:47 (ET). Electronically Signed: Brian Mcfarlane MD at 12:24 EST , ADDENDUM: 02/07/22 1231 IMPRESSION: Mild degree of bilateral scrotal compartment formation at the origin of the right and left internal carotid arteries. N.B. : The above Results were Read Back by Brian Mcfarlane MD to Josué Ricci and understanding confirmed on 02/07/2022 12:23:47 (ET). Electronically Signed: Brian Mcfarlane MD at 12:24 EST , Chest X-Ray 02/07/22 12:55 IMPRESSION: 5 suggestive scarring at the left lung base with areas of bronchiectasis. Findings also suggest some scarring in the peripheral lateral aspect of the right lung. Electronically Signed: Brian Mcfarlane MD at 13:17 EST , Physical Exam Const alert and no apparent distress Resp normal respiratory effort, no retractions, no use of accessory muscles and clear to auscultation bilaterally Cardio regular rate, regular rhythm, S1 normal heart sound and S2 normal heart sound GI normal to inspection, nondistended, normoactive bowel sounds and soft to palpation Neuro Neuro Narrative: Slight left facial droop but able to raise the left side of his mouth. Slight ataxia in left upper extremity Assessment & Plan Assessment/Plan (1) Stroke: PLAN: Not a TPA candidate; on Xarelto Patient's symptoms appears to have resolved by the time being admitted CT of the brain showed focal area of decreased attenuation in the insular cortex of the right temporal lobe CTA of the head and neck shows minimal plaque in the right carotid artery 2D echo done in July 2021 in [facility](seen in [facility]) showed EF 55% Will admit to PCU, monitor on telemetry MRI of the brain was unremarkable. Add aspirin, patient already on Xarelto Symptoms began after the patient was sleeping at his desk on his left arm. Symptoms are improving. Is more concerning for a transient palsy that may have been due to nerve impingement due to positioning PLAN: Plan Chronic conditions: * Hypertension, will hold carvedilol to allow for permissive hypertension. Will resume carvedilol later on per protocol * Hyperlipidemia, continue statin, recheck lipids in a.m. * History of leukemia status post stem cell transplant. Continue on acyclovir, atovaquone * BPH, continue Flomax. * H/o VTE, on Xarelto DVT PPx- On Xarelto Charges/Coding Visit Charges Inpatient E&M: 93237 Subs Hosp L2
[2022-02-08] MEDS: Calcium Carb/Vitamin D 1 TABLET Tablet PO (08:28)
[2022-02-08] MEDS: Tamsulosin HCl 0.4 MG Capsule PO (08:28)
[2022-02-08] MEDS: Budesonide 3 MG CAPSULE.EC PO (08:28)
[2022-02-08] MEDS: Acyclovir 800 MG Tablet PO (08:29)
[2022-02-08] MEDS: Famotidine 20 MG Tablet PO (08:29)
[2022-02-08] MEDS: Aspirin 81 MG TAB.CHEW PO (08:29)
[2022-02-08] MEDS: Cholecalciferol (VIT D3) 25 MCG TABLET (1,000 UNITS) PO (08:29)
[2022-02-08] MEDS: Rivaroxaban 10 MG Tablet PO (08:29)
[2022-02-08] MEDS: ATOVAQUONE 750 MG/5 ML ORAL.SUSP 1500 MG PO (08:30)
[2022-02-08] MEDS: Tacrolimus Anhydrous 1 MG Capsule PO (08:30)
--- NOTE | 2022-02-08 10:26 | MRI_ITS ---
HISTORY: CVA. TECHNIQUE: Multiplanar and multisequence MR images of the brain were obtained without contrast. 289 images. COMPARISON: CT prior day. FINDINGS: BRAIN PARENCHYMA: Multiple foci and small zones of increased T2 FLAIR signal in the bilateral cerebral white matter. No abnormal focus of restricted diffusion. No acute intracranial hemorrhage identified. CSF SPACES: Mild generalized volume loss. Cavum septum pellucidum incidentally noted. No significant midline shift or other mass effect.No extra-axial fluid collection. VASCULAR SYSTEM: Major intracranial flow voids are maintained. PARANASAL SINUSES AND MASTOID AIR CELLS: No significant air fluid levels. ORBITS: Symmetric contents. MRI/Brain without Contrast IMPRESSION: No evidence for acute infarct. Chronic involutional and white matter changes. Electronically Signed: Kathy Joseph MD at 13:48 EST ,
--- NOTE | 2022-02-08 10:50 | NURSING ---
NIHSS not completed when due 02/08/22 @ 1035 as patient is off the floor getting MRI of Brain. NIHSS and vitals will be completed when patient returns.
[2022-02-08 11:11] VITALS: BP 135/99; PULSE 96; RESP 16; TEMP 36.7; O2SAT 96
--- NOTE | 2022-02-08 13:10 | CASEMGMT ---
LYLA JEAN Face to Face with patient for initial transition planning/care coordination assessment. RN CM introduced self and role at [facility]. Patient lying in bed, alert and oriented. Patient willing to participate in assessment and is able to answer all questions appropriately. Care providers, pharmacy, and demographics verified. Patient wishes to discharge home, with possible outpatient occupational therapy, will monitor therapy. Patient states he has no further needs or concerns at this time. CM to follow for discharge planning needs that may arise. PCP: Genaro Longoria Specialists: Paul, oncologist at the [facility] Pharmacy: [facility] Insurance: [employer] [facility] Prescription Benefit: yes Living Will/HPOA: yes, Cheri Scanlon LNOK: Living Arrangements: Patient lives with in a 2 story home. Patient states he is independent and able to ambulate stairs. Transportation: self, DME/HHC: Patient has a cane. Patient denies previous HHC or SNF. Disposition Plan: Patient to discharge home with family support and follow-up plans in place. Will monitor for outpatient OT. Nohemi ROMO, RN, CM
[2022-02-08 14:50] VITALS: BMI 23.4
--- NOTE | 2022-02-08 14:52 | DCINST_ITS ---
Discharge Instructions Diet Discharge Diet: No restrictions Dressing / Incision Call your doctor if you observe: Numbness or Tingling Follow Up Care Test Results: Test results from this visit will be discussed in further detail at your follow- up appointment, if applicable. Discharge Plan Admission Admit Date/Time: 02/07/22 14:05 Primary Reason for Your Visit: left arm numbness. Attending Provider: Josué Beth Primary Care Provider: REYNA OVALLE Consulting Providers: Vicenta Sullivan Discharge Orders/Prescriptions Prescriptions: Continued acyclovir 800 mg tablet 800 mg PO BID atovaquone 750 mg/5 mL suspension 1,500 mg PO DAILY Rx Instructions: must administer with food, preferably a high-fat meal budesonide 3 mg capsule,delayed,extend.release 3 mg PO DAILY Rx Instructions: for 14 days buprenorphine 20 mcg/hour patch weekly 1 patch transdermal Q7D Calcium 600 with Vitamin D3 600 mg-10 mcg (400 unit) tablet,chewable 1 tab PO DAILY carvedilol 6.25 mg tablet 6.25 mg PO BID Rx Instructions: must administer with a meal/food cholecalciferol (vitamin D3) 25 mcg (1,000 unit) capsule 25 mcg PO DAILY diclofenac sodium 1 % gel 4 g topical ONCE Rx Instructions: apply to single knee, ankle, foot; for foot includes sole/toes/top of foot hydrocodone-acetaminophen 10-325 mg tablet 1 tab PO Q4H PRN PRN (Reason: Pain) lidocaine HCl 4 % adhesive patch,medicated 1 patch topical DAILY PRN (Reason: hip) magnesium oxide-Mg AA chelate 133 mg tablet 133 mg PO TID peg 3350-sod chlor-[place] cit 17 gram/ scoop kit 1 ea PO DAILY pravastatin 10 mg tablet 10 mg PO DAILY rivaroxaban 10 mg tablet 10 mg PO DAILY Rx Instructions: for 35 days tacrolimus 0.5 mg capsule 1 mg PO BID tamsulosin 0.4 mg capsule 0.4 mg PO DAILY vitamin B complex [B Complex-Vitamin B12] Tablet 1 tab PO DAILY Referrals / Follow Up: REYNA OVALLE [Other] Care Physician,No Primary [Non-Staff] - Disposition Disposition (needs filled in before D/C Order can be placed): Home, Self Care
--- NOTE | 2022-02-08 14:56 | DS.PCM_ITS ---
Providers Date of Admission: 02/07/22 Primary Care Physician: REYNA OVALLE Reason For Visit: CVA Diagnosis Discharge Diagnosis (1) Stroke: Status: Acute Code(s): I63.9 - Cerebral infarction, unspecified Plan: Not a TPA candidate; on Xarelto Patient's symptoms appears to have resolved by the time being admitted CT of the brain showed focal area of decreased attenuation in the insular cortex of the right temporal lobe CTA of the head and neck shows minimal plaque in the right carotid artery 2D echo done in July 2021 in [facility](seen in [facility]) showed EF 55% Will admit to PCU, monitor on telemetry MRI of the brain was unremarkable. Add aspirin, patient already on Xarelto Symptoms began after the patient was sleeping at his desk on his left arm. Symptoms are improving. Is more concerning for a transient palsy that may have been due to nerve impingement due to positioning Plan Chronic conditions: * Hypertension, will hold carvedilol to allow for permissive hypertension. Will resume carvedilol later on per protocol * Hyperlipidemia, continue statin, recheck lipids in a.m. * History of leukemia status post stem cell transplant. Continue on acyclovir, atovaquone * BPH, continue Flomax. * H/o VTE, on Xarelto DVT PPx- On Xarelto DC home. Medications at Discharge Home Medications acyclovir 800 mg tablet 800 mg PO BID Check with primary doctor 12/30/21 atovaquone 750 mg/5 mL oral suspension 1,500 mg PO DAILY chest 12/30/21 budesonide 3 mg capsule,delayed,extended release 3 mg PO DAILY GI 12/30/21 buprenorphine 20 mcg/hour weekly transdermal patch 1 patch transdermal Q7D hip 1 calcium carbonate 600 mg-vitamin D3 10 mcg (400 unit) chewable tablet (Calcium 600 with Vitamin D3) 1 tab PO DAILY supplement 12/30/21 carvedilol 6.25 mg tablet 6.25 mg PO BID heart 12/30/21 cholecalciferol (vitamin D3) 25 mcg (1,000 unit) capsule 25 mcg PO DAILY supplement 12/30/21 diclofenac sodium 1 % topical gel 4 g topical ONCE joint pain 12/30/21 hydrocodone 10 mg-acetaminophen 325 mg tablet 1 tab PO Q4H PRN PRN Pain 12/30/21 lidocaine HCl 4 % topical patch 1 patch topical DAILY PRN hip 12/30/21 magnesium oxide-magnesium amino acid chelate 133 mg tablet 133 mg PO TID suppl ement 12/30/21 peg 3350 17 gram/scoop-sodium chloride-potassium citrate oral kit 1 ea PO DAILY constipation 12/30/21 pravastatin 10 mg tablet 10 mg PO DAILY cholesterol 12/30/21 rivaroxaban 10 mg tablet 10 mg PO DAILY blood thinner 12/30/21 tacrolimus 0.5 mg capsule, immediate-release 1 mg PO BID Stem cell 12/30/21 tamsulosin 0.4 mg capsule 0.4 mg PO DAILY bladder 12/30/21 vitamin B complex (B Complex-Vitamin B12 tablet) 1 tab PO DAILY supplement 12/30/21 Weight / BMI Weight Weight: 70.2 kg Body Mass Index (BMI) 23.4 ABG / Lab / Microbiology Data Result Diagrams: 02/08/22 05:23 02/08/22 05:23 Laboratory: Laboratory Results - last 24 hr 02/07/22 11:55: Total Bilirubin 0.50, Direct Bilirubin 0.16, AST 17, ALT 28, Alkaline Phosphatase 82, Total Protein 6.7, Albumin 2.9 L, Globulin 3.8 02/07/22 11:55: Hemoglobin A1c 6.2 H 02/07/22 11:55: Iron 28 L, TIBC 245 L, Iron Saturation 11.4 L, Ferritin 156 02/08/22 05:23: WBC 6.9, RBC 2.96 L, Hgb 9.5 L, Hct 28.6 L, MCV 96.6 H, MCH 32.1 H, MCHC 33.2, RDW Std Deviation 54.9 H, RDW Coeff of Demario 15.5 H, Plt Count 349, MPV 9.0, Immature Gran % (Auto) 0.700, Neut % (Auto) 73.7 H, Lymph % (Auto) 10.4 L, [place] % (Auto) 9.0, Eos % (Auto) 5.8 H, Baso % (Auto) 0.4, Absolute Neuts (auto) 5.1, Absolute Lymphs (auto) 0.72 L, Nucleated RBC % 0 02/08/22 05:23: Sodium 137, Potassium 3.8, Chloride 104, Carbon Dioxide 24.0, Anion Gap 9, BUN 22 H, Creatinine 0.97, Estim Creat Clear Calc 58.76, Est GFR (MDRD) Af Amer 96, Est GFR (MDRD) Non-Af 79, BUN/Creatinine Ratio 22.7 H, Glucose 91, Calcium 8.2 L, Total Bilirubin 0.40, AST 15, ALT 28, Alkaline Phosphatase 71, Total Protein 6.2 L, Albumin 2.6 L, Globulin 3.6, Albumin/Globulin Ratio 0.7 L, Triglycerides 60, Cholesterol 145, LDL Cholesterol 76, VLDL Cholesterol 12, HDL Cholesterol 57 Radiography Diagnostic Testing: Radiology Impression Brain MRI 02/08/22 10:26 IMPRESSION: No evidence for acute infarct. Chronic involutional and white matter changes. Electronically Signed: Kathy Joseph MD at 13:48 EST , D/C Instructions Discharge Diet: No restrictions Call your doctor if you observe: Numbness or Tingling Meaningful Use Info Meaningful Use Diagnoses (Choose all that apply): None applicable Discharge Plan Admission Admit Date/Time: 02/07/22 14:05 Primary Reason for Your Visit: left arm numbness. Attending Provider: Josué Beth Primary Care Provider: REYNA OVALLE Consulting Providers: Vicenta Sullivan Discharge Orders/Prescriptions Prescriptions: Continued acyclovir 800 mg tablet 800 mg PO BID atovaquone 750 mg/5 mL suspension 1,500 mg PO DAILY Rx Instructions: must administer with food, preferably a high-fat meal budesonide 3 mg capsule,delayed,extend.release 3 mg PO DAILY Rx Instructions: for 14 days buprenorphine 20 mcg/hour patch weekly 1 patch transdermal Q7D Calcium 600 with Vitamin D3 600 mg-10 mcg (400 unit) tablet,chewable 1 tab PO DAILY carvedilol 6.25 mg tablet 6.25 mg PO BID Rx Instructions: must administer with a meal/food cholecalciferol (vitamin D3) 25 mcg (1,000 unit) capsule 25 mcg PO DAILY diclofenac sodium 1 % gel 4 g topical ONCE Rx Instructions: apply to single knee, ankle, foot; for foot includes sole/toes/top of foot hydrocodone-acetaminophen 10-325 mg tablet 1 tab PO Q4H PRN PRN (Reason: Pain) lidocaine HCl 4 % adhesive patch,medicated 1 patch topical DAILY PRN (Reason: hip) magnesium oxide-Mg AA chelate 133 mg tablet 133 mg PO TID peg 3350-sod chlor-potass cit 17 gram/ scoop kit 1 ea PO DAILY pravastatin 10 mg tablet 10 mg PO DAILY rivaroxaban 10 mg tablet 10 mg PO DAILY Rx Instructions: for 35 days tacrolimus 0.5 mg capsule 1 mg PO BID tamsulosin 0.4 mg capsule 0.4 mg PO DAILY vitamin B complex [B Complex-Vitamin B12] Tablet 1 tab PO DAILY Referrals / Follow Up: REYNA OVALLE [Other] Care Physician,No Primary [Non-Staff] - Disposition Disposition (needs filled in before D/C Order can be placed): Home, Self Care Charges/Coding Visit Charges Inpatient E&M: 34455 Disch Hosp
[2022-02-08 15:35] VITALS: BMI 23.4
--- NOTE | 2022-02-08 15:54 | CASEMGMT ---
Script faxed to [facility] for OP PT/OT per pt request. Pt was already d/c'd so unable to provide original script to pt. Rodrigo ARITA CM
== END 2022-02-08 15:23 | disposition home or self-care (01) | DRG 74 ==
LOC: ED 14:13 → PCU 14:26
PROVIDERS: Admitting Provider Internal Medicine; Emergency Provider Emergency Medicine
DX: G58.9 Mononeuropathy, unspecified (principal); C92.00 Acute myeloblastic leukemia, not having achieved remission; Z94.84 Stem cells transplant status; D50.9 Iron deficiency anemia, unspecified; I10 Essential (primary) hypertension; E78.5 Hyperlipidemia, unspecified; Z79.899 Other long term (current) drug therapy; N40.0 Benign prostatic hyperplasia without lower urinary tract symptoms; R29.702 NIHSS score 2
CPT/HCPCS: 36415; 70450; 70496; 70498; 70551; 71045; 80048; 80053; 80061; 80076; 82728; 82962; 83036; 83540; 83550; 84484; 85025; 85610; 85730; 93005; 97162; 97166; 97802; 99285; J7030; Q9967; A4216

== ENCOUNTER 2022-02-23 08:30 | Outpatient (RCR) | payer MEDICARE, SELFPAY ==
--- NOTE | 2022-02-09 14:49 | HP.OTEVAL ---
Patient's Visit Information MELLO SOLIZ is a 82 year old M, referred to Occupational Therapy by Dr. Josué Beth DO, with a diagnosis of TIA. Date of Evaluation: 02/09/22 Occupational Therapist: CHYNA Jane/Selina, CHT - Subjective This 82 year old male was seem for OT eval with dx of TIA vs transient palsy - pt states on Monday02/07/22 he fell asleep at his desk and when he woke up with limited left hand use and continues to have some deficits- pt states he went to ER and a scan was done with dx TIA- pt states stayed in hospital and following MRI they ruled out TIA. but still has difficult with left FM difficulty, weakness and difficulty with ADLs. pt would like to know what he can do to get more ROM and strength back in is left hand. - ADLs Miscellaneous: Use cell phone, Handle money (change), Use computer keyboard Comments: pt and his is assisting him as needed. lives in two story home. - ROM Shoulder: right/left WFL Elbow: right /left WNL Forearm: right/left WFL Wrist: right 70/65 left 35/65 ROM Comments: pt demo limited thumb and finger extension - Strength Shoulder: peak force in pounds right 10# left 16# Elbow: peak force in pounds right biceps 20# triceps 25 left biceps 20# [id number] Wrist: peak force in lbs. wrist extension right 12# left 4# Child Abuse Worker: right 80# left 40# Lateral Pinch: right 12# left 8# Tripod Pinch: right 14# left 6# Strength Comments: pt demo weakness of left wrist and digit extensors - Sensation Sensation Comments: denies - Nine Hole Peg Right: 25.09 sec Left: 26.00 sec. - Stroke Specific Quality of Life Total SS-QOL Score: 195 - Quick DASH-Disab of Arm,Shoulder& Hand Quick DASH Score: 12.5000 - Goals Goal:: pt will demo a increase in wrist ext peak force to 10# or greater to increase pts ind. with ADLs and IADLs by d.c. pt will demo a increase in left development coach strength to 65# or greater to increase pts ind. with ADLs and iADLs by d.c Goal:: pt will demo left wrist and digit extension equal to unaffected UE by d/c Goal:: pt will report return of performing ADLs and IADLS at PLOF by dc Goal:: pt will demo a reduction in word recall difficulty while talking with therapist in 30 min session by 50% by d/c - Rehabilitation General Assessment: pt demo with left facial droop, weakness of wrist and digit extensors limiting pt with performing ADLs. pt would benefit from skilled OT services 2x week for 4-8 weeks to return pt to PLOF. Pt demo difficulty with word finding during communication. (pt may need speech order to address expressive aphasia/memory recall or word recall). Today therapist ed. pt on AROM for wrist / digit extension along with wt. bearing to increase neuroplasticity and motor return. pt given handout and demo understanding of ex. and agree to POC. Rehabilitation Potential: Good - Anticipated Interventions A/AAROM/PROM, Strengthening, Fine Motor Coord/Suhail, Neuro Reeducation, Education re Diagnosis, Home Program - Visit Plan Frequency: 2x /Week Duration: 4 Weeks General Plan: will initiate wt. bearing to left UE. AROM. will progress to strengthening as pt tolerates TEXT: Thank you for the opportunity to evaluate your patient. For Medicare and Medicare HMO plans, please review the plan of care and approve it. It will need to be FAXED BACK to us at [phone] for Medicare purposes. Please let me know if there are questions or concerns regarding this plan of care. Physician Signature: Date:
--- NOTE | 2022-02-23 08:55 | HP.OTDCSUM ---
It has been my pleasure to treat MELLO SOLIZ under orders from Dr. Josué Beth DO, for the diagnosis of TIA for a total of 4 visit(s). Please see the following information for a summary of their discharge status. % Improvement: 70 Objective/Function: Airline Counter Agent: right 78# left 57# inital 40#. pt demo with left wrist extension peak force in pounds 15# increase from 4#. 9 hole peg test right 21 sec. a decrease from 25 sec. left 21 sec. a decrease from 26sec. indicating increase in FM speed. pt has made good progress with strength and FMS coordination Patient Goals: Improve Fine Motor Skills, Use Hand/Wrist/Arm Normally Again, Be More Independent in ADLS Goal:: pt will demo a increase in wrist ext peak force to 10# or greater to increase pts ind. with ADLs and IADLs by d.c. pt will demo a increase in left display maker strength to 65# or greater to increase pts ind. with ADLs and iADLs by d.c Goal:: pt will demo left wrist and digit extension equal to unaffected UE by d/c Goal:: pt will report return of performing ADLs and IADLS at PLOF by dc Goal:: pt will demo a reduction in word recall difficulty while talking with therapist in 30 min session by 50% by d/c Plan: pt d/c Discharge Comments: pt was seen for 4 OT sessions- pt made gains in strength and fine motor skills. pt states he is feeling better and has gained more coordination for performing ADLs and IADLs. pt is d/c at this time with HEP. pt did demo word finding difficulty with communication and OT mentioned possible Speech eval. pt stated he would think about it at this time and let us know. Pt states he is seeing so many specialist. pt met OT goals and d.c with HEP. If there are questions or concerns regarding this patient's occupational therapy, please fell free to call me at [phone]. Thank you for the referral of this patient. Sincerely, Sabra Flores, OTR/L, CHT
== END 2022-02-23 14:08 | disposition home or self-care (01) ==
LOC: OT 08:30
DX: I63.9 Cerebral infarction, unspecified (principal)
CPT/HCPCS: 97110; 97166; 97530

== ENCOUNTER → 2022-05-02 | Outpatient (CLI) | payer MEDICARE, SELFPAY ==
--- NOTE | 2022-05-02 09:48 | VDLE_ITS ---
Reason For Study: Pain, s/p allogenic bone marrow RIGHT LEFT GSV is normal. CFV is compressible, spontaneous, phasic, CFV is compressible, spontaneous, phasic, competent, and demonstrates normal competent and demonstrates normal augmentation. augmentation. FV is compressible, spontaneous, phasic, competent and demonstrates normal augmentation. POP V is compressible, spontaneous, phasic, competent and demonstrates normal augmentation. T/P Trunk is compressible. PTV is compressible. RT PerV is compressible. Procedure This is a venous duplex using B-mode, color flow and spectral Doppler. Exam performed in department. A preliminary report was called and/or faxed to [facility]. VL/Venous Duplex US, Unilateral Interpretation Summary There is no evidence of right lower extremity deep vein thrombosis. Right great saphenous vein appears patent and compressible segmentally. Normal flow patterns left common f emoral vein Ordering Physician: SONY WAHL Performed By: Alaina Anthony, EMANUEL, RVT
== END | disposition home or self-care (01) ==
LOC: CVS 09:43
DX: M79.604 Pain in right leg (principal); Z94.81 Bone marrow transplant status
CPT/HCPCS: 93971

== ENCOUNTER → 2022-05-10 | Outpatient (CLI) | payer MEDICARE, SELFPAY | END | disposition home or self-care (01) | LOC: PSN 12:00 | DX: Z94.81 Bone marrow transplant status (principal) ==

== ENCOUNTER → 2022-07-13 | Outpatient (CLI) | payer MEDICARE, SELFPAY ==
[2022-07-13 07:39] LABS: Absolute Lymphocyte Count 1.73 X10^3/uL (0.83-4.51); Absolute Neutrophil Count 2.5 X10^3/uL (2.0-7.7); Basophil# 0.03 X10^3/uL; Basophil% 0.6 % (0-1); Eosinophil# 0.06 X10^3/uL; Eosinophils% 1.2 % (0-5); Hematocrit 35.7 % (40-54); Hemoglobin 11.7 g/dL (13.0-16.5); Lymphocyte # 1.73 X10^3/ul (0.83-4.51); Lymphocyte % 34.3 % (19-41); Mean Corp Hgb Conc 32.8 g/dL (32-36); Mean Corpuscular Hgb 30.5 pg (27.0-32.0); Mean Corpuscular Volume 93.2 fL (80-94); Mean Platelet Vol. 9.4 fl (6.2-12.0); Monocyte# 0.56 X10^3/uL; Monocyte% 11.1 % (0-10); NRBC Flagged by Analyzer 0 % (0-5); Neutrophil # 2.54 X10^3/uL (2.7-7.7); Neutrophil % 50.2 % (47-70); POSITIVE MORPHOLOGY YES; Platelet Count 170 K/mm3 (150-450); RBC Distribution Width CV 19.6 % (11.6-14.6); RBC Distribution Width SD 66.2 fl (35.1-43.9); Red Blood Count 3.83 M/mm3 (4.6-6.2); White Blood Count 5.1 K/mm3 (4.4-11.0)
[2022-07-13 07:42] LABS: Differential Indicated SCAN CRITERIA MET
[2022-07-13 08:13] LABS: ALB/GLOB Ratio 1.1 RATIO (0.9-2.4); AST(SGOT) 50 U/L (15-37); Alanine Aminotransfer ALT/SGPT 79 U/L (16-61); Albumin, Serum 3.5 g/dL (3.2-5.0); Alkaline Phosphatase 146 U/L (45-117); Anion Gap 4 (5-15); BUN 32 mg/dL (7-18); BUN/Creat Ratio 21.9 RATIO (10-20); Calcium,Total 8.6 mg/dL (8.5-10.1); Chloride 106 mmol/L (98-107); Creatinine, Serum 1.46 mg/dL (0.70-1.30); EST Glomerular Filtration Rate 49 mL/min (>60); Est Glom Filt Rate - Afr Amer 60 mL/min (>60); Globulin 3.1 g/dL (2.2-4.2); Glucose 94 mg/dL (74-106); LDH 296 U/L (87-241); Potassium 5.1 mmol/L (3.5-5.1); Protein, Total 6.6 g/dL (6.4-8.2); Sodium Level 136 mmol/L (136-145)
[2022-07-13 08:15] LABS: Anisocytosis 1+
[2022-07-18 08:52] LABS: Tacrolimus (FK506) 4.9 ng/mL (2.0-20.0)
== END | disposition home or self-care (01) ==
LOC: LAB 06:29
DX: C92.00 Acute myeloblastic leukemia, not having achieved remission (principal); Z94.81 Bone marrow transplant status
CPT/HCPCS: 36415; 80053; 80197; 83615; 85025

== ENCOUNTER 2022-08-06 15:00 | Inpatient (IN) | payer MEDICARE, SELFPAY ==
[2022-08-06 15:49] VITALS: BP 115/72; PULSE 87; RESP 16; TEMP 37; O2SAT 98
--- NOTE | 2022-08-06 16:12 | NURSING ---
REVIEWED HOME MEDS WITH , SHE IS GOING TO [facility] TO AUTOMATION QA LEAD NONFORMULARY MEDICATIONS AT THIS TIME.
--- NOTE | 2022-08-06 18:08 | HP.PCM_ITS ---
HPI - General General Date of Admission: 08/06/22 Date of Service: 08/07/22 Chief Complaint: Here for rehabilitation. HPI Narrative MELLO SOLIZ, is a 82 Male who presents with followin08/02/2022 Admit to [facility]. Bilateral hip AVN, history acute myeloid leukemia, chronic steroid use. 08/02/2022 Dr. Montelongo performed right total hip arthroplasty. 08/03/2022 Hematology consulted to manage immunosuppressants for AML status post bone marrow transplant. Continue Tacrolimus, Jakafi 5mg twice daily. 08/06/2022 Admit to TCU with debility, here for rehabilitation, strengthening, prior to discharge home with . [facility] Medical History (Updated 08/06/22 @ 18:[address] Konrad Mcneil MD) Avascular necrosis of bones of both hips BPH (benign prostatic hyperplasia) Chronic pain Debility History of acute myeloid leukemia History of DVT (deep vein thrombosis) Hyperlipidemia Hypertension Leukemia Stroke Home Medications acyclovir 800 mg tablet 800 mg PO BID Check with primary doctor 12/30/21 [History Last Taken 02/07/22] atovaquone 750 mg/5 mL oral suspension 1,500 mg PO DAILY chest 12/30/21 [History Last Taken 02/07/22] buprenorphine 20 mcg/hour weekly transdermal patch 1 patch transdermal Q7D hip 12/30/21 [History Last Taken 02/02/22] calcium carbonate 600 mg-vitamin D3 10 mcg (400 unit) chewable tablet (Calcium 600 with Vitamin D3) 1 tab PO DAILY supplement 12/30/21 [History Last Taken 02/07/22] carvedilol 6.25 mg tablet 6.25 mg PO BID heart 12/30/21 [History Last Taken 02/07/22] cholecalciferol (vitamin D3) 25 mcg (1,000 unit) capsule 25 mcg PO DAILY supplement 12/30/21 [History Last Taken 02/07/22] diclofenac sodium 1 % topical gel 4 g topical ONCE joint pain 12/30/21 [History Last Taken 02/07/22] hydrocodone 10 mg-acetaminophen 325 mg tablet 1 tab PO Q4H PRN PRN CANCER ASSOCIATED PAIN 12/30/21 [History Last Taken 02/07/22] lidocaine HCl 4 % topical patch 1 patch topical DAILY PRN hip 12/30/21 [History Last Taken 02/07/22] magnesium oxide-magnesium amino acid chelate 133 mg tablet 133 mg PO TID supplement 12/30/21 [History Last Taken 02/07/22] peg 3350 17 gram/scoop-sodium chloride-potassium citrate oral kit 1 ea PO DAILY constipation 12/30/21 [History Last Taken Unknown] pravastatin 10 mg tablet 10 mg PO DAILY cholesterol 12/30/21 [History Last Taken 02/06/22] rivaroxaban 10 mg tablet 10 mg PO DAILY blood thinner 12/30/21 [History Last Taken 02/06/22] tacrolimus 0.5 mg capsule, immediate-release 1 mg PO BID Stem cell 12/30/21 [History Last Taken 02/07/22] tamsulosin 0.4 mg capsule 0.4 mg PO DAILY bladder 12/30/21 [History Last Taken 02/07/22] vitamin B complex (B Complex-Vitamin B12 tablet) 1 tab PO DAILY supplement 12/30/21 [History Last Taken 02/07/22] docusate sodium 100 mg capsule (Colace) 100 mg PO BID STOOL SOFTENER 08/06/22 [History Last Taken Unknown] famotidine 20 mg tablet 20 mg PO DAILY@1800 ACID REFLUX 08/06/22 [History Last Taken Unknown] guaifenesin 100 mg/5 mL oral liquid 200 mg PO Q4H PRN Cough 08/06/22 [History Last Taken Unknown] isavuconazonium sulfate 186 mg capsule (Cresemba) 372 mg PO DAILY Check with primary doctor 08/06/22 [History Last Taken Unknown] ondansetron 4 mg disintegrating tablet 4 mg PO Q6H PRN Nausea 08/06/22 [History Last Taken Unknown] oxycodone 5 mg tablet 5 mg PO Q4H PRN Pain (Scale Score 7-10) 08/06/22 [History Last Taken Unknown] ruxolitinib 10 mg tablet (Jakafi) 10 mg PO BID ACUTE MYELOID LEUKEMIA IN REMISSION 08/06/22 [History Last Taken Unknown] Allergy/AdvReac Type Severity Reaction Status Date / Time Sulfa (Sulfonamide Allergy Other Verified 12/30/21 14:24 Antibiotics) Family History (Updated 08/06/22 @ 18:[address] Konrad Mcneil MD) Father Congestive heart failure Glaucoma Skin cancer Sister Uterine cancer Surgical History (Updated 08/06/22 @ 18:[address] Konrad Mcneil MD) H/O stem cell transplant History of hernia repair History of tonsillectomy History of total right hip arthroplasty History of wisdom tooth extraction Social History (Updated 08/06/22 @ 18:[address] Konrad Mcneil MD) household members: spouse Smoking Status: Never smoker alcohol intake: former substance use type: does not use ROS Constitutional Constitutional: Denies chills, fever(s) or weight gain ENT HEENT: Denies headache(s), nasal congestion or nasal discharge Cardiovascular Cardiovascular: Denies chest pain or palpitations Respiratory/Chest Respiratory/Chest: Denies cough, excessive phlegm production or shortness of breath with exertion Gastrointestinal Gastrointestinal: Reports constipation; Denies abdominal pain, nausea or vomiting Genitourinary Genitourinary: Denies dysuria Musculoskeletal Musculoskeletal: Reports other Details: Right hip sore. ; Denies joint pain or joint swelling Integumentary Integumentary: Denies rash or wounds Neurologic Neurologic: Denies focal weakness, numbness or tingling Psychiatric Psychiatric: Denies anxiety, auditory hallucinations, depression, homicidal ideation or suicidal ideation Vital Signs Vital Signs Vital Signs: 08/06/22 15:49 Temperature 98.6 F Temperature Source Temporal Pulse Rate 87 Respiratory Rate 16 Blood Pressure 115/72 Blood Pressure Mean 86 Blood Pressure Source Monitor Blood Pressure Position Sitting Blood Pressure Location Left Arm Pulse Ox 98 Oxygen Delivery Method Room Air Weight Weight: 75.807 kg Physical Exam Const alert General Appearance: cooperative HEENT normocephalic Eyes PERRL and EOMs intact bilaterally Neck supple, no JVD and no carotid bruits Resp normal respiratory effort, normal air movement and clear to auscultation bilaterally Cardio regular rate and regular rhythm GI normal to inspection, nondistended, normoactive bowel sounds, non-tender and non-distended Extremity normal capillary refill General Extremity: Negative for edema Skin no rashes or lesions noted General Skin Exam: no breakdown Psych affect normal Appearance: appropriate Results Lab / Micro Data Result Diagrams: 08/07/22 06:22 08/07/22 06:22 Assessment & Plan Assessment/Plan (1) Debility: (2) Avascular necrosis of bones of both hips: (3) S/P total right hip arthroplasty: (4) History of DVT (deep vein thrombosis): (5) Chronic pain: (6) BPH (benign prostatic hyperplasia): (7) Hyperlipidemia: (8) Hypertension: (9) Stroke: PLAN: Plan 82 year old male with below past medical history significant for 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 * Debility - PT/OT. * Pain - Butrans 5mcg 1 patch topical qweek, Lidoderm patch daily, Diclofenac t opical daily, [place] 5/325mg 1 tablet q4h prn pain (1-6), Oxycodone 5mg q4h prn pain (7-10). * Bowel - Miralax 17gm daily, senna/colace 2 tablets bid, soad suds enemia x 1. * Adult immunization - Administer pneumonia vaccine, covid19 vaccine, flu vaccine as appropriate. * DVT prophylaxis - Xarelto 10mg daily thru 09/10/2022. Hold Xarelto due to anemia, if hemoglobin stable after transfusion, restart Xarelto. 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 * Postoperative anemia - Hemoglobin 7.2, transfuse 2 units PRBC per protocol, Lasix 20mg IV between units, H&H 24 hours after rx. Discussed with [facility] police liaison heme/onc. * Herpes zoster prophylaxis - Acyclovir 800mg bid. * PCP prophylaxis - Mepron 1500mg daily. * Aspergillus prophylaxis - Cresemba 372mg daily. * Calcium deficiency - Calcium D 1 tablet daily. * Coronary artery disease - Coreg 6.25mg bid. * GERD - Famotidine 20mg daily. * Cough - Robitussin 10ml q4h prn. * Hypomagnesemia - Magnesium 133mg tid. * Nausea - Zofran odt 4mg q6h prn. * Hyperlipidemia - Pravastatin 10mg qhs. * BPH - Tamsulosin 0.4mg daily. * Vitamin B deficiency - Vitamin B complex daily. * Vitamin D deficiency - D3 25mcg daily.
[2022-08-06] MEDS: Docusate Sodium 100 MG Capsule PO (18:27)
[2022-08-06] MEDS: Carvedilol 6.25 MG Tablet PO (18:28)
[2022-08-06] MEDS: Tacrolimus Anhydrous 1 MG Capsule PO (18:28)
[2022-08-06] MEDS: Famotidine 20 MG Tablet PO (18:28)
[2022-08-06] MEDS: Acyclovir 800 MG Tablet PO (18:28)
[2022-08-06] MEDS: Pravastatin 20 MG Tablet 10 MG PO (21:39)
[2022-08-07] MEDS: Lidocaine 5% Patch 1 PATCH TOPICAL (06:37)
[2022-08-07] MEDS: Acyclovir 800 MG Tablet PO ×2 (06:37→19:37)
[2022-08-07] MEDS: Polyethylene Glycol 3350 17 GM PACKET PO (06:38)
[2022-08-07] MEDS: Tacrolimus Anhydrous 1 MG Capsule PO ×2 (06:38→19:40)
[2022-08-07] MEDS: Docusate Sodium 100 MG Capsule PO (06:39)
[2022-08-07 06:45] VITALS: BP 138/82; PULSE 88; RESP 16
--- NOTE | 2022-08-07 06:51 | NURSING ---
patient declines josh at this time, states will accept later this AM
[2022-08-07 06:56] LABS: Absolute Lymphocyte Count 0.99 X10^3/uL (0.83-4.51); Absolute Neutrophil Count 3.5 X10^3/uL (2.0-7.7); Basophil# 0.01 X10^3/uL; Basophil% 0.2 % (0-1); Differential Indicated SCAN CRITERIA MET; Eosinophil# 0.15 X10^3/uL; Eosinophils% 2.9 % (0-5); Hematocrit 21.8 % (40-54); Hemoglobin 7.2 g/dL (13.0-16.5); Lymphocyte # 0.99 X10^3/ul (0.83-4.51); Lymphocyte % 18.9 % (19-41); Mean Corpuscular Hgb 31.9 pg (27.0-32.0); Mean Corpuscular Volume 96.5 fL (80-94); Mean Platelet Vol. 9.4 fl (6.2-12.0); Monocyte# 0.49 X10^3/uL; Monocyte% 9.3 % (0-10); NRBC Flagged by Analyzer 0.4 % (0-5); Neutrophil # 3.53 X10^3/uL (2.7-7.7); Neutrophil % 67.2 % (47-70); POSITIVE MORPHOLOGY YES; Platelet Count 221 K/mm3 (150-450); RBC Distribution Width CV 21.4 % (11.6-14.6); RBC Distribution Width SD 74.4 fl (35.1-43.9); Red Blood Count 2.26 M/mm3 (4.6-6.2); White Blood Count 5.3 K/mm3 (4.4-11.0)
[2022-08-07 07:10] LABS: Anion Gap 5 (5-15); BUN 17 mg/dL (7-18); BUN/Creat Ratio 15.9 RATIO (10-20); Calcium,Total 7.9 mg/dL (8.5-10.1); Chloride 105 mmol/L (98-107); Creatinine, Serum 1.07 mg/dL (0.70-1.30); EST Glomerular Filtration Rate 71 mL/min (>60); Est Glom Filt Rate - Afr Amer 85 mL/min (>60); Estimated Creatinine Clearance 53.27 ml/min; Glucose 102 mg/dL (74-106); Potassium 4.6 mmol/L (3.5-5.1); Sodium Level 134 mmol/L (136-145)
[2022-08-07 07:11] LABS: Anisocytosis 1+; Differential Comment SCANNED; Hypochromasia 1+; Microcytosis 1+
--- NOTE | 2022-08-07 08:17 | NURSING ---
Patient states steel rule inspector is Dr. White in [place], patient does not wish for local steel rule inspector, due to being treated for leukemia
[2022-08-07] MEDS: Vitamin B Comp W-C Capsule 1 CAP PO (08:50)
[2022-08-07] MEDS: Carvedilol 6.25 MG Tablet PO ×2 (08:50→19:38)
[2022-08-07] MEDS: ATOVAQUONE 750 MG/5 ML ORAL.SUSP 1500 MG PO (08:51)
[2022-08-07] MEDS: Calcium Carb/Vitamin D 1 TABLET Tablet PO (08:52)
[2022-08-07] MEDS: Tamsulosin HCl 0.4 MG Capsule PO (08:53)
[2022-08-07] MEDS: Cholecalciferol (VIT D3) 25 MCG TABLET (1,000 UNITS) PO (08:53)
[2022-08-07] MEDS: Senna/Docusate Sodium 1 Tablet 2 TABLET PO (11:42)
[2022-08-07] MEDS: Tuberculin,Purif.prot.deriv. 50 TU/ML Vial 0.1 ML ID (11:42)
[2022-08-07] MEDS: Acetaminophen 325 MG Tablet 650 MG PO (11:59)
--- NOTE | 2022-08-07 15:59 | NURSING ---
PT LEFT FLOOR AT 1200 TO MED SURG FOR BLOOD INFUSION.
--- NOTE | 2022-08-07 18:57 | NURSING ---
0815; NOTIFIED OF PT HGB 7.2. ORDERS RECEIVED TO TYPE AND CROSS FOR 2 UNITS OF PRBC'S.
[2022-08-07] MEDS: Furosemide 20 MG/2 ML VIAL IV (19:10)
--- NOTE | 2022-08-07 19:23 | NURSING ---
NOTIFIED DR. ELIZABETH SUERO LAND MANAGER FOR DR. MONTANO THAT PT WILL BE GETTING 2 UNITS OF PRBC'S WITH 20 MG OF IV LASIX IN BETWEEN UNITS OF BLOOD. INQUIRING WITH PT HX OF BONE MARROW TRANS0
--- NOTE | 2022-08-07 19:27 | NURSING ---
NOTIFIED DR. ELIZABETH SUERO ONCALL FOR DR. MONTANO ONCOLOGY OUT OF [place]. INFORMED THAT PT WILL BE GETTING 2 UNITS PRBC'S WITH 20 MG IV LASIX BETWEEN THE UNITS OF BLOOD. INQUIRING WITH PT HISTORY OF BONE MARROW TRANSPLANT AND LEUKEMIA IF THEY WOULD LIKE ANY OTHER MEASURES ORDERED PRIOR TO GIVING BLOOD OR WITH BLOOD TRANSFUSION. DR. SUERO WOULD LIKE PT TO HAVE 650 MG PO TYLENOL PRIOR TO BLOOD TRANSFUSION. NOTIFIED OF TYLENOL AND THIS MED WAS ORDERED FOR PT. PT WILL RECEIVE BLOOD TRANSFUSION ON [facility] 3.
[2022-08-07] MEDS: Pravastatin 20 MG Tablet 10 MG PO (19:38)
[2022-08-07 19:40] VITALS: BP 138/73; PULSE 90; RESP 16
[2022-08-07] MEDS: Famotidine 20 MG Tablet PO (19:40)
[2022-08-08 05:42] LABS: Hematocrit 28.9 % (40-54); Hemoglobin 10.2 g/dL (13.0-16.5)
[2022-08-08] MEDS: Lidocaine 5% Patch 1 PATCH TOPICAL (06:46)
[2022-08-08] MEDS: Tacrolimus Anhydrous 1 MG Capsule PO ×2 (06:46→18:05)
[2022-08-08] MEDS: Acyclovir 800 MG Tablet PO ×2 (06:46→18:05)
[2022-08-08] MEDS: Vitamin B Comp W-C Capsule 1 CAP PO (07:51)
[2022-08-08] MEDS: Carvedilol 6.25 MG Tablet PO ×2 (07:51→18:04)
[2022-08-08] MEDS: Calcium Carb/Vitamin D 1 TABLET Tablet PO (07:51)
[2022-08-08] MEDS: Cholecalciferol (VIT D3) 25 MCG TABLET (1,000 UNITS) PO (07:52)
[2022-08-08] MEDS: Tamsulosin HCl 0.4 MG Capsule PO (07:52)
[2022-08-08] MEDS: ATOVAQUONE 750 MG/5 ML ORAL.SUSP 1500 MG PO (07:53)
[2022-08-08 13:19] VITALS: BP 107/70; PULSE 88; RESP 18; TEMP 37.1; O2SAT 96
[2022-08-08] MEDS: oxyCODONE 5 MG Tablet PO (14:18)
[2022-08-08 18:00] VITALS: BP 129/89; PULSE 89
[2022-08-08] MEDS: Famotidine 20 MG Tablet PO (18:05)
[2022-08-08] MEDS: Senna/Docusate Sodium 1 Tablet 2 TABLET PO (18:05)
[2022-08-08] MEDS: Pravastatin 20 MG Tablet 10 MG PO (22:47)
[2022-08-08 22:55] VITALS: PULSE 96; RESP 16; O2SAT 94
[2022-08-09 05:47] LABS: Hematocrit 31.8 % (40-54); Hemoglobin 10.4 g/dL (13.0-16.5)
[2022-08-09] MEDS: Acyclovir 800 MG Tablet PO ×2 (06:08→17:15)
[2022-08-09] MEDS: Senna/Docusate Sodium 1 Tablet 2 TABLET PO (06:08)
[2022-08-09] MEDS: Tacrolimus Anhydrous 1 MG Capsule PO ×2 (06:11→17:14)
[2022-08-09] MEDS: Lidocaine 5% Patch 1 PATCH TOPICAL (07:52)
[2022-08-09] MEDS: Vitamin B Comp W-C Capsule 1 CAP PO (07:53)
[2022-08-09] MEDS: Carvedilol 6.25 MG Tablet PO ×2 (07:53→17:13)
[2022-08-09] MEDS: Calcium Carb/Vitamin D 1 TABLET Tablet PO (07:53)
[2022-08-09] MEDS: Tamsulosin HCl 0.4 MG Capsule PO (07:54)
[2022-08-09] MEDS: Cholecalciferol (VIT D3) 25 MCG TABLET (1,000 UNITS) PO (07:54)
[2022-08-09] MEDS: ATOVAQUONE 750 MG/5 ML ORAL.SUSP 1500 MG PO (07:54)
[2022-08-09] MEDS: HYDROcodone Bitartrate/Apap 5/325 Tablet PO (08:04)
[2022-08-09 10:00] VITALS: PULSE 82; RESP 16; O2SAT 96
--- NOTE | 2022-08-09 14:38 | NURSING ---
Surgical mepilex to right hip removed at this time. No drainage or redness noted to incision. Marycarmen intact. Area cleansed with saline and new mepilex placed per order. Patient reports no additional Mepilex from surgery sent with patient, and regular mepilex placed over incision at this time.
[2022-08-09 15:00] VITALS: BMI 25.2
[2022-08-09 15:37] VITALS: BP 104/70; PULSE 92; RESP 16; TEMP 36.8; O2SAT 97
--- NOTE | 2022-08-09 16:12 | PCM.PN.DRR ---
TCU RX Drug Regimen Review Subjective: TCU Admission. 82 YOM who presented to [facility] with bilateral hip AVN, acute myeloid leukemia, and chronic steroid use. Hospitalized for right total hip arthroplasty. Admitted to TCU on 08/06/2022 with debility for rehab and strengthening. Objective: Allergies Sulfa (Sulfonamide Antibiotics) Allergy (Verified 12/30/21 14:24) Other Current Medications Generic Name Dose Route Start Last Admin Trade Name Freq PRN Reason Stop Dose Admin Hydrocodone Bitart/Acetaminophen 1 tablet 08/06/22 16:06 08/09/22 08:04 Hydrocodone Bitartrate/Apap 5/325 Tablet PO 1 tablet Q4H PRN PRN Administration Pain Score 1-6 Acyclovir 800 mg 08/06/22 18:00 08/09/22 06:08 Acyclovir 800 Mg Tablet PO 800 mg BID SEGUNDO Administration Atovaquone 1,500 mg 08/07/22 08:00 08/09/22 07:54 Atovaquone 750 Mg/5 Ml Oral.Susp PO 1,500 mg DAILYCM SEGNUDO Administration Buprenorphine 1 each 08/07/22 06:00 08/07/22 06:27 Buprenorphine 5mcg/Hr Patch TD 1 each Q7D SEGUNDO Administration Calcium/Vitamin D 1 tablet 08/07/22 08:00 08/09/22 07:53 Calcium Carb/Vitamin D 1 Tablet Tablet PO 1 tablet DAILYCM SEGUNDO Administration Carvedilol 6.25 mg 08/06/22 17:00 08/09/22 07:53 Carvedilol 6.25 Mg Tablet PO 6.25 mg BIDCM SEGUNDO Administration Cholecalciferol 25 mcg 08/07/22 08:00 08/09/22 07:54 Cholecalciferol (Vit D3) 25 Mcg Tablet (1,000 Units) PO 25 mcg DAILYCM SEGUNDO Administration Diclofenac Sodium 0 applic 08/07/22 06:00 08/09/22 07:53 Diclofenac 1% Gel 100gm Tube TOPICAL 1 applic DAILY SEGUNDO Administration Famotidine 20 mg 08/06/22 18:00 08/08/22 18:05 Famotidine 20 Mg Tablet PO 20 mg DAILY@1800 SEGUNDO Administration Guaifenesin 10 ml 08/06/22 15:24 Guaifenesin 10 Ml Udc (200mg/10ml) PO Q4H PRN COUGH Sodium Chloride 250 mls @ 15 mls/hr 08/08/22 09:24 IV .[id number] PRN Saline Flush Sodium Chloride 250 mls @ 15 mls/hr 08/08/22 09:24 IV .[id number] PRN Additional IVPB Infusion Lidocaine 1 patch 08/07/22 06:00 08/09/22 07:52 Lidocaine 5% Patch TOPICAL 1 patch DAILY SEGUNDO Administration Protocol Multivitamins 1 cap 08/07/22 08:00 08/09/22 07:53 Vitamin B Comp W-C Capsule PO 1 cap DAILYCM SEGUNDO Administration Non-Formulary (Mg 133 mg 08/06/22 22:00 08/09/22 14:24 Plus Protein 133mg PO 133 mg Mg Supplement) TID SEGUNDO Administration Ondansetron HCl 4 mg 08/06/22 15:24 Ondansetron Odt 4 Mg Tablet PO Q6H PRN Nausea Oxycodone HCl 5 mg 08/06/22 15:24 08/08/22 14:18 Oxycodone 5 Mg Tablet PO 5 mg Q4H PRN Administration Pain (Scale Score 7-10) Polyethylene Glycol 17 gm 08/07/22 06:00 08/09/22 06:08 Polyethylene Glycol 3350 17 Gm Packet PO Not Given DAILY [facility] Pravastatin Sodium 10 mg 08/06/22 22:00 08/08/22 22:47 Pravastatin 20 Mg Tablet PO 10 mg QHS SEGUNDO Administration Rivaroxaban 10 mg 08/09/22 17:00 Rivaroxaban 10 Mg Tablet PO 09/10/22 23:59 DINNER [facility] Senna/Docusate Sodium 2 tablet 08/07/22 11:00 08/09/22 06:08 Senna/Docusate Sodium 1 Tablet PO 2 tablet BID SEGUNDO Administration Sodium Chloride 10 - 40 ml 08/06/22 16:18 0.9% Saline Lock 10 Ml Syringe IV UD PRN SALINE FLUSH Sodium Chloride 10 - 40 ml 08/08/22 09:24 0.9% Saline Lock 10 Ml Syringe IV UD PRN SALINE FLUSH Tacrolimus 1 mg 08/06/22 18:00 08/09/22 06:11 Tacrolimus Anhydrous 1 Mg Capsule PO 1 mg BID SEGUNOD Administration Tamsulosin HCl 0.4 mg 08/07/22 08:30 08/09/22 07:54 Tamsulosin Hcl 0.4 Mg Capsule PO 0.4 mg DAILY@0830 SEGUNDO Administration Tuberculin PPD 0.1 ml 08/14/22 10:00 Tuberculin,Purif.Prot.Deriv. 50 Tu/Ml Vial ID 08/14/22 10:01 X1 ONE Problem List (Last Updated 08/06/22 @ 18:[address] Konrad Mcneil MD) S/P total right hip arthroplasty (Acute) History of DVT (deep vein thrombosis) (Acute) Chronic pain (Chronic) BPH (benign prostatic hyperplasia) (Acute) Hyperlipidemia (Acute) Hypertension (Chronic) Debility (Acute) Stroke (Acute) Avascular necrosis of bones of both hips (Acute) Vital Signs Temp Pulse Resp BP Pulse Ox O2 Del Method 98.2 F 92 16 104/70 97 Room Air 08/09/22 15:37 08/09/22 15:37 08/09/22 15:37 08/09/22 15:37 08/09/22 15:37 08/09/22 15:37 Oxygen Delivery Method Room Air Weight: 75.466 kg Body Mass Index (BMI) 25.2 Sodium 134 mmol/L (136-145) L 08/07/22 06:22 Potassium 4.6 mmol/L (3.5-5.1) 08/07/22 06:22 Chloride 105 mmol/L (98-107) 08/07/22 06:22 Carbon Dioxide 24.0 mmol/L (21.0-32.0) 08/07/22 06:22 Anion Gap 5 (5-15) 08/07/22 06:22 BUN 17 mg/dL (7-18) 08/07/22 06:22 Creatinine 1.07 mg/dL (0.70-1.30) 08/07/22 06:22 Est GFR (MDRD) Af Amer 85 mL/min (>60) 08/07/22 06:22 Est GFR (MDRD) Non-Af 71 mL/min (>60) 08/07/22 06:22 BUN/Creatinine Ratio 15.9 RATIO (10-20) 08/07/22 06:22 Glucose 102 mg/dL (74-106) 08/07/22 06:22 Assessment/Plan: 1. Pain: Butrans 5mcg 1 patch topical weekly, Lidoderm 5% patch topical daily, Diclofenac 1% gel topical daily, [place] 5/325mg 1 tablet PO Q4H PRN pain (1-6) and oxycodone 5mg tablet PO Q4H PRN pain (7-10). Resident has used 1 dose of [place] for a pain score of 5 in the hip and oxycodone for a pain score of 7 in the hip. Monitor: pain levels, rash, constipation, drowsiness, prn medication use. 2. Bowel: Miralax 17gm PO daily, senna/colace 2 tablets PO bid. Monitor: increased or decreased constipation or diarrhea. No documented bowel movement. 3. 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 Monitor: s/s of infection (fungal/vial/TB infection black box warning), VTE/[place] (black box warning), WBC, platelets, LFTs, triglycerides, lipid panel and temperature.?Unless a level was sent from previous facility, please consider ordering tacrolimus level as the resident does not have one in the chart. Thanks. 4. Pneumocystis pneumonia prophylaxis: Mepron 1500mg PO daily. Monitor: elevated WBC, rash, diarrhea, S/S of infection. 5. Herpes Zoster prophylaxis: acyclovir 800mg PO bid. Monitor: kidney function (Scr 0.97-1.46), headache, malaise. 6. Aspergillus prophylaxis: Cresemba 372mg PO daily. Please continue to monitor for S/S of infection, LFTs, renal function, edema and potassium (4.6mmol/L). 7. GERD: Famotidine 20mg PO daily. Monitor: nausea, stomach upset, please encourage pt to use non-pharm measures to prevent/treat flare-ups. 8. CAD: Coreg 6.25mg PO BID. Monitor HR (87-96), BP (last 104/70), orthostasis, dizziness. 9. Hyperlipidemia: pravastatin 10mg PO QHS. Monitor lipid levels (last lipid panel 02/2022 and WNL), LFTs (last 07/13/22), muscle aches. 11. BPH: Tamsulosin 0.4mg PO daily. Monitor: blurred vision, dizziness, BP, drowsiness. 12. Nausea: Zofran ODT 4mg SL Q6H PRN nausea/vomiting. Monitor: diarrhea, headache, frequency of prn medication use. No PRN doses given. 13. Cough: Robitussin 10mL (200 mg/10mL) PO Q4H PRN cough. Monitor: cough characteristics, prn medication use. No PRN doses given. 14. Calcium/vitamin D/vitamin B deficiencies and hypomagnesemia: Calcium D 1 tablet PO daily, Vitamin B complex PO daily, cholecalciferol 25mcg PO daily, Magnesium 133mg PO tid, Multivitamin 1 capsule PO daily. Please consider ordering a magnesium level and vitamin D level as the resident does not have either in the chart. Thanks. Please continue to monitor calcium (last 7.9mg/dL 08/07/22). 15. DVT prophylaxis: Xarelto 10mg PO dinner thru 09/10/22. Monitor: excess bleeding, bruising, fall risk and hemoglobin (last 10.4g/dL). ? Assessment/Plan for indications treated with psychotropic medications: None Medical chart and medication regimen reviewed. The following medication irregularities or issues were identified: *1. Tacrolimus 1mg PO bid. Monitor: s/s of infection, WBC, and temperature.?Unless a level was sent from previous facility, please consider ordering tacrolimus level as the resident does not have one in the chart. Thanks. *2. Calcium D 1 tablet PO daily, cholecalciferol 25mcg PO daily, Magnesium 133mg PO TID. Please consider ordering a magnesium level and vitamin D level as the resident does not have either in the chart. Thanks. Date of Note:: 08/09/22
[2022-08-09] MEDS: Rivaroxaban 10 MG Tablet PO (17:13)
[2022-08-09] MEDS: Famotidine 20 MG Tablet PO (17:14)
[2022-08-09] MEDS: Pravastatin 20 MG Tablet 10 MG PO (21:07)
--- NOTE | 2022-08-10 00:21 | NURSING ---
pegrans patch on pts left deltoid dated 08/08
[2022-08-10] MEDS: Senna/Docusate Sodium 1 Tablet 2 TABLET PO (06:10)
[2022-08-10] MEDS: Tacrolimus Anhydrous 1 MG Capsule PO ×2 (06:10→17:12)
[2022-08-10] MEDS: Polyethylene Glycol 3350 17 GM PACKET PO (06:10)
[2022-08-10] MEDS: Acyclovir 800 MG Tablet PO ×2 (06:11→17:14)
--- NOTE | 2022-08-10 06:16 | NURSING ---
PATIENT DECLINES VOLTAREN AND LIDOCAINE PATCH AT THIS TIME, STATES WILL ACCEPT AFTER SHOWER THIS AM
--- NOTE | 2022-08-10 06:20 | NURSING ---
Wilberto patch observed in place to left deltoid at this time per order
[2022-08-10] MEDS: HYDROcodone Bitartrate/Apap 5/325 Tablet PO (06:22)
[2022-08-10] MEDS: Lidocaine 5% Patch 1 PATCH TOPICAL (08:26)
[2022-08-10] MEDS: Carvedilol 6.25 MG Tablet PO ×2 (08:28→17:11)
[2022-08-10] MEDS: Vitamin B Comp W-C Capsule 1 CAP PO (08:28)
[2022-08-10] MEDS: ATOVAQUONE 750 MG/5 ML ORAL.SUSP 1500 MG PO (08:29)
[2022-08-10] MEDS: Calcium Carb/Vitamin D 1 TABLET Tablet PO (08:30)
[2022-08-10] MEDS: Cholecalciferol (VIT D3) 25 MCG TABLET (1,000 UNITS) PO (08:30)
[2022-08-10] MEDS: Tamsulosin HCl 0.4 MG Capsule PO (08:31)
--- NOTE | 2022-08-10 09:43 | CASEMGMT ---
Social Work IDT met with patient and for care plan meeting. Discussed patient's progress in PT/OT/SN. Educated to [facility] insurance with NRD 08/15 and continued stay is not guaranteed with each review. Educated to copay coverage: days 1-20 100%; days 21-100 has $196/day/ SW requested provide copies of advanced directives. Pt's goal is to return home with at [facility]. Pt is TTWB currently and has difficulty consistently maintaining. SW to continue to follow for DC planning. Ericka Medina, WINDOWS DESKTOP SUPPORT INFORMATICS ANALYST
[2022-08-10 10:00] VITALS: PULSE 101; RESP 18; O2SAT 97
--- NOTE | 2022-08-10 15:44 | CASEMGMT ---
Social Work Met with patient to complete initial assessment. Discussed code status. Pt confirms full code. MOLST completed and placed in Dr folder. Confirmed pt has 2nd floor bedroom, and will need to complete steps to bedroom to DC. Pt is currently TTWB. SW to continue to follow for DC planning. Ericka Medina, MANAGEMENT DEVELOPMENT SPECIALIST ELECTRIC LINEMAN
[2022-08-10 16:00] VITALS: BP 128/68; PULSE 83; RESP 20; TEMP 37.1; O2SAT 97
--- NOTE | 2022-08-10 16:17 | CHAPLAIN ---
Type of Pastoral Visit _x__ Initial Visit ___ Follow-up Visit ___ On-call Visit ___ General Patient Visit ___ Spiritual Assessment ___ Family Conference ___ Bereavement ___ Rapid Response ___ Code Blue ___ Other (describe below) Pastoral Care Referral From _x__ Patient ___ Family ___ Nurse ___ Physician ___ Photographer Assistant ___ Quiller Machine Fixer ___ Other (describe below) Sacrament/Intervention _x__ Active listening ___ Anointing ___ Taoist ___ Bereavement ___ Communion ___ Lauren exploration ___ _x__ Life review ___ Prayer ___ Reconciliation ___ Sacrament of Sick _x__ Supportive presence ___ Wedding ___ Other (describe below) Pastoral Comments patient is working on his computer; 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
--- NOTE | 2022-08-10 16:40 | NURSING ---
Roller Stainer Note; Activity Asset: Jacob Lizarraga is independent in his choice of daily activities. During the day he will work from his room on his computer and watch tv or visit w/family when not in therapy.
[2022-08-10] MEDS: Juven (unflavored) Packet 1 PACKET PO (17:11)
[2022-08-10] MEDS: Famotidine 20 MG Tablet PO (17:12)
[2022-08-10] MEDS: Rivaroxaban 10 MG Tablet PO (17:12)
[2022-08-10] MEDS: Pravastatin 20 MG Tablet 10 MG PO (22:07)
[2022-08-11] MEDS: Acyclovir 800 MG Tablet PO ×2 (05:36→18:20)
[2022-08-11] MEDS: Tacrolimus Anhydrous 1 MG Capsule PO ×2 (05:36→18:20)
[2022-08-11] MEDS: Senna/Docusate Sodium 1 Tablet 2 TABLET PO (05:36)
[2022-08-11 05:52] LABS: Hematocrit 29.2 % (40-54); Hemoglobin 9.9 g/dL (13.0-16.5); Mean Corp Hgb Conc 33.9 g/dL (32-36); Mean Corpuscular Hgb 31.1 pg (27.0-32.0); Mean Corpuscular Volume 91.8 fL (80-94); Mean Platelet Vol. 8.9 fl (6.2-12.0); POSITIVE COUNT YES; POSITIVE MORPHOLOGY YES; Platelet Count 182 K/mm3 (150-450); RBC Distribution Width CV 20.3 % (11.6-14.6); RBC Distribution Width SD 66.6 fl (35.1-43.9); Red Blood Count 3.18 M/mm3 (4.6-6.2); White Blood Count 7.5 K/mm3 (4.4-11.0)
[2022-08-11 05:56] LABS: Differential Indicated MANUAL DIFF
[2022-08-11 06:22] LABS: AST(SGOT) 47 U/L (15-37); Alanine Aminotransfer ALT/SGPT 79 U/L (16-61); Albumin, Serum 2.5 g/dL (3.2-5.0); Alkaline Phosphatase 125 U/L (45-117); Bilirubin, Direct 0.14 mg/dL (0.00-0.30); Protein, Total 5.5 g/dL (6.4-8.2)
[2022-08-11 06:31] LABS: Eosinophil 3 % (0-5); Lymphocyte 19 % (19-41); Metamyelocyte 1 % (0-1); Monocyte 7 % (0-10); Myelocyte 2 % (0-0); Neutrophil-Band 1 % (0-5); Neutrophil-Segmented 67 % (47-70); Platelet Estimate ADEQUATE (ADEQ); Total Cells Counted 100 (MANUAL DIFF)
[2022-08-11 06:32] LABS: Red Cell Morphology NORM C+C NORMAL (NORM C&C)
[2022-08-11 06:33] LABS: Absolute Lymphocyte Count 1.42 X10^3/uL (0.83-4.51); Absolute Neutrophil Count 5.1 X10^3/uL (2.0-7.7); Lymphocyte # 1.42 X10^3/ul (0.83-4.51); Neutrophil # 5.08 X10^3/uL (2.7-7.7)
[2022-08-11] MEDS: Juven (unflavored) Packet 1 PACKET PO ×2 (08:45→18:18)
[2022-08-11] MEDS: Vitamin B Comp W-C Capsule 1 CAP PO (08:45)
[2022-08-11] MEDS: Carvedilol 6.25 MG Tablet PO ×2 (08:46→18:18)
[2022-08-11] MEDS: ATOVAQUONE 750 MG/5 ML ORAL.SUSP 1500 MG PO (08:46)
[2022-08-11] MEDS: Tamsulosin HCl 0.4 MG Capsule PO (08:47)
[2022-08-11] MEDS: Cholecalciferol (VIT D3) 25 MCG TABLET (1,000 UNITS) PO (08:47)
[2022-08-11] MEDS: Calcium Carb/Vitamin D 1 TABLET Tablet PO (08:47)
[2022-08-11 09:40] LABS: Pathologist Review Reviewed
[2022-08-11] MEDS: Lidocaine 5% Patch 1 PATCH TOPICAL (12:25)
--- NOTE | 2022-08-11 12:39 | MDS.RN ---
MDS pain interview for aura 08/13/22 completed.
[2022-08-11 14:43] VITALS: BP 118/74; PULSE 88; RESP 16; TEMP 36.9; O2SAT 95
[2022-08-11] MEDS: Rivaroxaban 10 MG Tablet PO (18:19)
[2022-08-11] MEDS: Famotidine 20 MG Tablet PO (18:19)
[2022-08-11] MEDS: Pravastatin 20 MG Tablet 10 MG PO (21:12)
[2022-08-12] MEDS: HYDROcodone Bitartrate/Apap 5/325 Tablet PO ×2 (02:10→22:00)
[2022-08-12] MEDS: Acyclovir 800 MG Tablet PO ×2 (05:30→17:13)
[2022-08-12] MEDS: Tacrolimus Anhydrous 1 MG Capsule PO ×2 (05:33→17:13)
[2022-08-12] MEDS: Carvedilol 6.25 MG Tablet PO ×2 (07:47→17:13)
[2022-08-12] MEDS: Vitamin B Comp W-C Capsule 1 CAP PO (07:48)
[2022-08-12] MEDS: Juven (unflavored) Packet 1 PACKET PO ×2 (07:49→17:13)
[2022-08-12] MEDS: Cholecalciferol (VIT D3) 25 MCG TABLET (1,000 UNITS) PO (07:52)
[2022-08-12] MEDS: Tamsulosin HCl 0.4 MG Capsule PO (07:52)
[2022-08-12] MEDS: Calcium Carb/Vitamin D 1 TABLET Tablet PO (07:52)
[2022-08-12] MEDS: ATOVAQUONE 750 MG/5 ML ORAL.SUSP 1500 MG PO (07:54)
--- NOTE | 2022-08-12 13:17 | CASEMGMT ---
Social Work BIMS () and PHQ-9 (05/02) completed for MDS assessment. Ericka Medina MSW CITY PLANNING ENGINEER
[2022-08-12 16:00] VITALS: BP 105/70; PULSE 78; RESP 16; TEMP 36.7; O2SAT 96
[2022-08-12] MEDS: Rivaroxaban 10 MG Tablet PO (17:13)
[2022-08-12] MEDS: Famotidine 20 MG Tablet PO (17:13)
[2022-08-12] MEDS: Pravastatin 20 MG Tablet 10 MG PO (21:59)
[2022-08-13] MEDS: Acyclovir 800 MG Tablet PO ×2 (06:48→17:28)
[2022-08-13] MEDS: Tacrolimus Anhydrous 1 MG Capsule PO ×2 (06:49→17:29)
[2022-08-13 06:59] LABS: Hematocrit 32.5 % (40-54); Hemoglobin 10.6 g/dL (13.0-16.5)
[2022-08-13 07:29] LABS: AST(SGOT) 43 U/L (15-37); Alanine Aminotransfer ALT/SGPT 80 U/L (16-61); Albumin, Serum 2.9 g/dL (3.2-5.0); Alkaline Phosphatase 133 U/L (45-117); Bilirubin, Direct 0.14 mg/dL (0.00-0.30); Globulin 3.4 g/dL (2.2-4.2); Protein, Total 6.3 g/dL (6.4-8.2)
[2022-08-13] MEDS: Juven (unflavored) Packet 1 PACKET PO ×2 (09:02→17:25)
[2022-08-13] MEDS: Vitamin B Comp W-C Capsule 1 CAP PO (09:02)
[2022-08-13] MEDS: Cholecalciferol (VIT D3) 25 MCG TABLET (1,000 UNITS) PO (09:02)
[2022-08-13] MEDS: Carvedilol 6.25 MG Tablet PO ×2 (09:03→17:26)
[2022-08-13] MEDS: Calcium Carb/Vitamin D 1 TABLET Tablet PO (09:03)
[2022-08-13] MEDS: Lidocaine 5% Patch 1 PATCH TOPICAL (09:04)
[2022-08-13] MEDS: Arthritis Pain Compound 60 CLICK TUBE TOPICAL ×2 (09:04→17:26)
[2022-08-13] MEDS: Tamsulosin HCl 0.4 MG Capsule PO (09:06)
[2022-08-13] MEDS: ATOVAQUONE 750 MG/5 ML ORAL.SUSP 1500 MG PO (09:07)
[2022-08-13 13:21] VITALS: BP 103/72; PULSE 89; RESP 18; TEMP 36.7; O2SAT 97
[2022-08-13] MEDS: Rivaroxaban 10 MG Tablet PO (17:25)
[2022-08-13] MEDS: Famotidine 20 MG Tablet PO (17:27)
[2022-08-13] MEDS: Senna/Docusate Sodium 1 Tablet 2 TABLET PO (17:28)
[2022-08-13] MEDS: HYDROcodone Bitartrate/Apap 5/325 Tablet PO (21:45)
[2022-08-13] MEDS: Pravastatin 20 MG Tablet 10 MG PO (21:46)
[2022-08-13 22:00] VITALS: PULSE 98; RESP 16; O2SAT 95
[2022-08-14 04:53] LABS: Absolute Lymphocyte Count 1.53 X10^3/uL (0.83-4.51); Basophil# 0.04 X10^3/uL; Basophil% 0.6 % (0-1); Eosinophil# 0.25 X10^3/uL; Eosinophils% 3.7 % (0-5); Hematocrit 26.6 % (40-54); Hemoglobin 8.9 g/dL (13.0-16.5); Lymphocyte # 1.53 X10^3/ul (0.83-4.51); Lymphocyte % 22.8 % (19-41); Mean Corp Hgb Conc 33.5 g/dL (32-36); Mean Corpuscular Hgb 31.4 pg (27.0-32.0); Mean Platelet Vol. 9.2 fl (6.2-12.0); Monocyte% 10.4 % (0-10); NRBC Flagged by Analyzer 0 % (0-5); Neutrophil # 3.97 X10^3/uL (2.7-7.7); Neutrophil % 59.1 % (47-70); POSITIVE MORPHOLOGY YES; Platelet Count 222 K/mm3 (150-450); RBC Distribution Width CV 20.2 % (11.6-14.6); RBC Distribution Width SD 68.1 fl (35.1-43.9); Red Blood Count 2.83 M/mm3 (4.6-6.2); White Blood Count 6.7 K/mm3 (4.4-11.0)
[2022-08-14 04:57] LABS: Differential Indicated SCAN CRITERIA MET
[2022-08-14 05:20] LABS: Anion Gap 6 (5-15); BUN 40 mg/dL (7-18); BUN/Creat Ratio 30.1 RATIO (10-20); Calcium,Total 7.9 mg/dL (8.5-10.1); Chloride 105 mmol/L (98-107); Creatinine, Serum 1.33 mg/dL (0.70-1.30); EST Glomerular Filtration Rate 55 mL/min (>60); Est Glom Filt Rate - Afr Amer 66 mL/min (>60); Estimated Creatinine Clearance 42.86 ml/min; Glucose 94 mg/dL (74-106); Potassium 4.7 mmol/L (3.5-5.1); Sodium Level 136 mmol/L (136-145)
[2022-08-14 05:36] LABS: Anisocytosis 2+
[2022-08-14] MEDS: Senna/Docusate Sodium 1 Tablet 2 TABLET PO ×2 (06:22→16:44)
[2022-08-14] MEDS: Acyclovir 800 MG Tablet PO ×2 (06:23→16:45)
[2022-08-14] MEDS: Tacrolimus Anhydrous 1 MG Capsule PO ×2 (06:24→16:44)
[2022-08-14] MEDS: Arthritis Pain Compound 60 CLICK TUBE TOPICAL ×2 (06:25→16:43)
[2022-08-14] MEDS: Carvedilol 6.25 MG Tablet PO ×2 (07:51→16:42)
[2022-08-14] MEDS: Juven (unflavored) Packet 1 PACKET PO ×2 (07:51→16:42)
[2022-08-14] MEDS: Cholecalciferol (VIT D3) 25 MCG TABLET (1,000 UNITS) PO (07:51)
[2022-08-14] MEDS: Vitamin B Comp W-C Capsule 1 CAP PO (07:51)
[2022-08-14] MEDS: Tamsulosin HCl 0.4 MG Capsule PO (07:52)
[2022-08-14] MEDS: Calcium Carb/Vitamin D 1 TABLET Tablet PO (07:52)
[2022-08-14] MEDS: Lidocaine 5% Patch 1 PATCH TOPICAL (07:54)
[2022-08-14] MEDS: ATOVAQUONE 750 MG/5 ML ORAL.SUSP 1500 MG PO (07:54)
--- NOTE | 2022-08-14 08:01 | NURSING ---
BUTRANS PATCH IN PLACE TO RIGHT DELTOID.
[2022-08-14] MEDS: Tuberculin,Purif.prot.deriv. 50 TU/ML Vial 0.1 ML ID (12:31)
[2022-08-14 14:22] VITALS: BP 94/59; PULSE 85; RESP 18; TEMP 36.9; O2SAT 96
[2022-08-14 16:40] VITALS: BP 126/88
[2022-08-14] MEDS: Rivaroxaban 10 MG Tablet PO (16:42)
[2022-08-14] MEDS: Famotidine 20 MG Tablet PO (16:45)
[2022-08-14] MEDS: Pravastatin 20 MG Tablet 10 MG PO (20:45)
[2022-08-15] MEDS: Acyclovir 800 MG Tablet PO ×2 (05:55→17:59)
[2022-08-15] MEDS: Arthritis Pain Compound 60 CLICK TUBE TOPICAL ×2 (05:55→17:57)
[2022-08-15] MEDS: Tacrolimus Anhydrous 1 MG Capsule PO ×2 (05:56→17:59)
[2022-08-15 06:06] LABS: Hematocrit 33.6 % (40-54); Hemoglobin 11.1 g/dL (13.0-16.5)
[2022-08-15 06:34] LABS: AST(SGOT) 43 U/L (15-37); Alanine Aminotransfer ALT/SGPT 88 U/L (16-61); Albumin, Serum 3.1 g/dL (3.2-5.0); Alkaline Phosphatase 149 U/L (45-117); Bilirubin, Direct 0.14 mg/dL (0.00-0.30); Globulin 3.6 g/dL (2.2-4.2); Protein, Total 6.7 g/dL (6.4-8.2)
[2022-08-15 07:28] VITALS: BP 109/73; PULSE 83
[2022-08-15] MEDS: Cholecalciferol (VIT D3) 25 MCG TABLET (1,000 UNITS) PO (07:31)
[2022-08-15] MEDS: Tamsulosin HCl 0.4 MG Capsule PO (07:31)
[2022-08-15] MEDS: Carvedilol 6.25 MG Tablet PO ×2 (07:31→17:57)
[2022-08-15] MEDS: Calcium Carb/Vitamin D 1 TABLET Tablet PO (07:31)
[2022-08-15] MEDS: Vitamin B Comp W-C Capsule 1 CAP PO (07:31)
[2022-08-15] MEDS: Lidocaine 5% Patch 1 PATCH TOPICAL (07:31)
--- NOTE | 2022-08-15 12:42 | NURSING ---
Patient needs to be NPO after midnight for liver US in morning.
--- NOTE | 2022-08-15 13:22 | NURSING ---
Call from Dr. White's office requesting labs, labs faxed.
--- NOTE | 2022-08-15 15:34 | NURSING ---
Call from Dr. White's office requesting labs, CBC w/ diff, BMP, and Hepatic liver panel, to be drawn on MondayAugust 21. This RN states labs already ordered for MondayAugust 21. States thats fine. This RN added hepatic panel for Monday's labs. Please fax lab results to Dr. White's office.
--- NOTE | 2022-08-15 16:16 | NURSING ---
Patient returned to unit from appt at this time.
[2022-08-15 17:52] VITALS: BP 124/78; PULSE 87; RESP 17; TEMP 36.7; O2SAT 96
[2022-08-15] MEDS: Rivaroxaban 10 MG Tablet PO (17:57)
[2022-08-15] MEDS: Juven (unflavored) Packet 1 PACKET PO (17:57)
[2022-08-15] MEDS: Famotidine 20 MG Tablet PO (17:58)
[2022-08-15] MEDS: Senna/Docusate Sodium 1 Tablet 2 TABLET PO (17:59)
[2022-08-15] MEDS: Pravastatin 20 MG Tablet 10 MG PO (22:39)
--- NOTE | 2022-08-16 06:18 | NURSING ---
AM medications on hold at this time for liver ultrasound.
--- NOTE | 2022-08-16 07:41 | US_ITS ---
STUDY: ABDOMINAL ULTRASOUND - RIGHT UPPER QUADRANT REASON FOR VISIT: Male, 82 years old Elevated LFT''s TECHNIQUE: Ultrasound evaluation of the right upper quadrant was performed with real-time and static zuluaga-scale imaging. TECHNICAL QUALITY: Adequate. COMPARISON: None. FINDINGS: Liver: The liver measures 12.3 cm. There is increased echogenicity consistent with fatty infiltration. The bile ducts are within normal limits. There is hepatic color flow. The direction of portal flow is hepatopetal. There is no demonstrated mass lesion. Gallbladder: Normal distended gallbladder. The gallbladder wall measures 2.1 mm. There is a negative sonographic Wolff''s sign. There is no pericholecystic fluid. There are no gallstones. There is a 4 mm gallbladder polyp adherent to the gallbladder wall. Common Bile Duct (C.B.D.): The common bile duct measures 3.0 mm. Pancreas: Normal size of the head, body and tail of the pancreas. There is normal echogenicity of the pancreas. There is no demonstrated pancreatic mass or cyst. Right Kidney: Normal size of the right kidney. The right kidney measures 11.2 cm x 4.9 cm x 6.3 cm. Normal renal cortex. The right cortex measures 1.4 cm. 3 renal cysts are seen. The largest measures 1.8 cm x 1.6 cm x 1.6 cm. There is no right hydronephrosis. US/Liver IMPRESSION: Fatty infiltration of the liver. 4 mm gallbladder polyp. Renal cysts. Electronically Signed: Brian Mcfarlane MD at 12:43 EDT ,
[2022-08-16] MEDS: Senna/Docusate Sodium 1 Tablet 2 TABLET PO ×2 (09:14→17:36)
[2022-08-16] MEDS: Tacrolimus Anhydrous 1 MG Capsule PO ×2 (09:15→17:35)
[2022-08-16] MEDS: Vitamin B Comp W-C Capsule 1 CAP PO (09:15)
[2022-08-16] MEDS: Acyclovir 800 MG Tablet PO ×2 (09:15→17:35)
[2022-08-16] MEDS: Cholecalciferol (VIT D3) 25 MCG TABLET (1,000 UNITS) PO (09:15)
[2022-08-16] MEDS: Calcium Carb/Vitamin D 1 TABLET Tablet PO (09:15)
[2022-08-16] MEDS: ATOVAQUONE 750 MG/5 ML ORAL.SUSP 1500 MG PO (09:16)
[2022-08-16] MEDS: Juven (unflavored) Packet 1 PACKET PO ×2 (09:17→17:36)
[2022-08-16] MEDS: Tamsulosin HCl 0.4 MG Capsule PO (09:17)
[2022-08-16] MEDS: Carvedilol 6.25 MG Tablet PO ×2 (09:18→17:36)
[2022-08-16 09:28] VITALS: BP 132/86; PULSE 81
[2022-08-16 13:01] VITALS: BMI 25.0
[2022-08-16 14:47] VITALS: BP 116/83; PULSE 81; RESP 18; TEMP 36.5; O2SAT 98
[2022-08-16] MEDS: Famotidine 20 MG Tablet PO (17:35)
[2022-08-16] MEDS: Rivaroxaban 10 MG Tablet PO (17:36)
[2022-08-16 17:41] VITALS: BP 125/80; PULSE 74
[2022-08-16] MEDS: Pravastatin 20 MG Tablet 10 MG PO (21:48)
--- NOTE | 2022-08-16 21:54 | NURSING ---
Pt reports he and his spouse picked up the Mag Plus p[rotein Supplement while in [place] yesterday and that the medication remains at home. he plans to contact his spouse to have the medication brought to the unit.
[2022-08-17 06:09] LABS: HEPATITIS B SURFACE AG Negative (Negative); Hep C Antibodies Non Reactive (Non Reactive); Hepatitis A IgM Antibody Negative (Negative); Hepatitis B Core AB IgM Negative (Negative)
[2022-08-17] MEDS: Acyclovir 800 MG Tablet PO ×2 (07:06→17:32)
[2022-08-17] MEDS: Tacrolimus Anhydrous 1 MG Capsule PO ×2 (07:06→17:32)
--- NOTE | 2022-08-17 08:12 | MDS.RN ---
Information for the mds was obtained from review of the clinical record, interview of resident, staff, and direct observation of resident's care.
[2022-08-17] MEDS: Carvedilol 6.25 MG Tablet PO ×2 (08:51→17:32)
[2022-08-17] MEDS: Vitamin B Comp W-C Capsule 1 CAP PO (08:51)
[2022-08-17] MEDS: Calcium Carb/Vitamin D 1 TABLET Tablet PO (08:51)
[2022-08-17] MEDS: Tamsulosin HCl 0.4 MG Capsule PO (08:51)
[2022-08-17] MEDS: Cholecalciferol (VIT D3) 25 MCG TABLET (1,000 UNITS) PO (08:51)
[2022-08-17] MEDS: Juven (unflavored) Packet 1 PACKET PO ×2 (08:52→17:32)
[2022-08-17] MEDS: ATOVAQUONE 750 MG/5 ML ORAL.SUSP 1500 MG PO (08:52)
[2022-08-17 08:56] VITALS: BP 123/79; PULSE 92
[2022-08-17 14:30] VITALS: BP 101/66; PULSE 78; RESP 16; TEMP 36.7; O2SAT 96
[2022-08-17] MEDS: Rivaroxaban 10 MG Tablet PO (17:32)
[2022-08-17] MEDS: Famotidine 20 MG Tablet PO (17:32)
[2022-08-17 17:35] VITALS: BP 123/85; PULSE 88
[2022-08-17 18:12] VITALS: BP 100/55; PULSE 73
--- NOTE | 2022-08-17 19:06 | NURSING ---
and Pt updated on Pharmacy ordering Mag. Plus protein and will be here 08/18/22.
[2022-08-17 20:00] VITALS: PULSE 94; RESP 16; O2SAT 96
[2022-08-17] MEDS: Pravastatin 20 MG Tablet 10 MG PO (21:21)
[2022-08-18 05:50] LABS: Absolute Lymphocyte Count 1.06 X10^3/uL (0.83-4.51); Absolute Neutrophil Count 3.6 X10^3/uL (2.0-7.7); Basophil# 0.03 X10^3/uL; Basophil% 0.5 % (0-1); Eosinophil# 0.18 X10^3/uL; Eosinophils% 3.3 % (0-5); Hematocrit 27.3 % (40-54); Hemoglobin 9.1 g/dL (13.0-16.5); Lymphocyte # 1.06 X10^3/ul (0.83-4.51); Lymphocyte % 19.3 % (19-41); Mean Corp Hgb Conc 33.3 g/dL (32-36); Mean Corpuscular Hgb 31.7 pg (27.0-32.0); Mean Corpuscular Volume 95.1 fL (80-94); Mean Platelet Vol. 9.1 fl (6.2-12.0); Monocyte# 0.54 X10^3/uL; Monocyte% 9.8 % (0-10); NRBC Flagged by Analyzer 0 % (0-5); Neutrophil # 3.61 X10^3/uL (2.7-7.7); Neutrophil % 65.8 % (47-70); POSITIVE MORPHOLOGY YES; Platelet Count 269 K/mm3 (150-450); RBC Distribution Width CV 20.4 % (11.6-14.6); RBC Distribution Width SD 69.3 fl (35.1-43.9); Red Blood Count 2.87 M/mm3 (4.6-6.2); White Blood Count 5.5 K/mm3 (4.4-11.0)
[2022-08-18 06:19] LABS: Differential Indicated SCAN CRITERIA MET
[2022-08-18] MEDS: Tacrolimus Anhydrous 1 MG Capsule PO ×2 (06:26→17:56)
[2022-08-18] MEDS: Acyclovir 800 MG Tablet PO ×2 (06:26→17:56)
[2022-08-18 06:36] LABS: AST(SGOT) 23 U/L (15-37); Alanine Aminotransfer ALT/SGPT 46 U/L (16-61); Albumin, Serum 2.6 g/dL (3.2-5.0); Alkaline Phosphatase 113 U/L (45-117); Bilirubin, Direct 0.12 mg/dL (0.00-0.30); Protein, Total 5.6 g/dL (6.4-8.2)
[2022-08-18 06:38] LABS: Anisocytosis 1+; Differential Comment SCANNED
[2022-08-18 06:39] LABS: Macrocytosis 1+
[2022-08-18] MEDS: Juven (unflavored) Packet 1 PACKET PO ×2 (07:41→17:56)
[2022-08-18] MEDS: Tamsulosin HCl 0.4 MG Capsule PO (07:41)
[2022-08-18] MEDS: Cholecalciferol (VIT D3) 25 MCG TABLET (1,000 UNITS) PO (07:41)
[2022-08-18] MEDS: Vitamin B Comp W-C Capsule 1 CAP PO (07:41)
[2022-08-18] MEDS: Calcium Carb/Vitamin D 1 TABLET Tablet PO (07:41)
[2022-08-18] MEDS: Carvedilol 6.25 MG Tablet PO ×2 (07:41→17:56)
[2022-08-18] MEDS: ATOVAQUONE 750 MG/5 ML ORAL.SUSP 1500 MG PO (07:42)
[2022-08-18 07:43] VITALS: BP 114/75; PULSE 85
[2022-08-18 10:00] VITALS: PULSE 85; RESP 18; O2SAT 98
[2022-08-18 13:37] VITALS: BP 108/74; PULSE 82; RESP 18; TEMP 36.8; O2SAT 98
[2022-08-18] MEDS: Famotidine 20 MG Tablet PO (17:56)
[2022-08-18] MEDS: Senna/Docusate Sodium 1 Tablet 2 TABLET PO (17:56)
[2022-08-18] MEDS: Pravastatin 20 MG Tablet 10 MG PO (21:25)
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
[2022-08-19] MEDS: Senna/Docusate Sodium 1 Tablet 2 TABLET PO (05:12)
[2022-08-19] MEDS: Acyclovir 800 MG Tablet PO ×2 (05:12→17:18)
[2022-08-19] MEDS: Tacrolimus Anhydrous 1 MG Capsule PO ×2 (05:12→17:18)
[2022-08-19] MEDS: Juven (unflavored) Packet 1 PACKET PO ×2 (07:43→17:18)
[2022-08-19] MEDS: Carvedilol 6.25 MG Tablet PO ×2 (07:43→17:18)
[2022-08-19] MEDS: Cholecalciferol (VIT D3) 25 MCG TABLET (1,000 UNITS) PO (07:44)
[2022-08-19] MEDS: Calcium Carb/Vitamin D 1 TABLET Tablet PO (07:44)
[2022-08-19] MEDS: Tamsulosin HCl 0.4 MG Capsule PO (07:44)
[2022-08-19] MEDS: ATOVAQUONE 750 MG/5 ML ORAL.SUSP 1500 MG PO (07:46)
[2022-08-19 16:00] VITALS: BP 104/68; PULSE 86; RESP 20; TEMP 36.7; O2SAT 97
[2022-08-19] MEDS: Famotidine 20 MG Tablet PO (17:18)
[2022-08-19] MEDS: Pravastatin 20 MG Tablet 10 MG PO (21:18)
[2022-08-19] MEDS: Menthol/Lanolin/Calamine/Znox 113 GM Tube 1 APPLIC TOPICAL (21:19)
[2022-08-20] MEDS: Tacrolimus Anhydrous 1 MG Capsule PO ×2 (07:05→17:38)
[2022-08-20] MEDS: Senna/Docusate Sodium 1 Tablet 2 TABLET PO (07:05)
[2022-08-20] MEDS: Acyclovir 800 MG Tablet PO ×2 (07:06→17:38)
[2022-08-20] MEDS: Arthritis Pain Compound 60 CLICK TUBE TOPICAL (07:07)
[2022-08-20 08:09] LABS: Hematocrit 29.7 % (40-54); Hemoglobin 9.7 g/dL (13.0-16.5)
[2022-08-20] MEDS: Carvedilol 6.25 MG Tablet PO ×2 (09:33→17:38)
[2022-08-20] MEDS: Juven (unflavored) Packet 1 PACKET PO ×2 (09:33→17:38)
[2022-08-20] MEDS: ATOVAQUONE 750 MG/5 ML ORAL.SUSP 1500 MG PO (09:33)
[2022-08-20] MEDS: Vitamin B Comp W-C Capsule 1 CAP PO (09:33)
[2022-08-20] MEDS: Cholecalciferol (VIT D3) 25 MCG TABLET (1,000 UNITS) PO (09:33)
[2022-08-20] MEDS: Calcium Carb/Vitamin D 1 TABLET Tablet PO (09:34)
[2022-08-20] MEDS: Tamsulosin HCl 0.4 MG Capsule PO (09:35)
[2022-08-20 15:11] VITALS: BP 109/70; PULSE 73; RESP 16; TEMP 36.3; O2SAT 96
--- NOTE | 2022-08-20 17:01 | NURSING ---
Dr. Mcneil aware of OB+. PT Currently has no signs of bleeding. No bright red blood or tarry stools. Pt will continue on xarelto at this time. Pt instructed to let nurse know if stool becomes black and tarry or sees blood or any other changes in stool. Pt verbalizes understanding.
[2022-08-20] MEDS: Famotidine 20 MG Tablet PO (17:37)
[2022-08-20] MEDS: Rivaroxaban 10 MG Tablet PO (17:38)
[2022-08-20] MEDS: Menthol/Lanolin/Calamine/Znox 113 GM Tube 1 APPLIC TOPICAL (22:39)
[2022-08-20] MEDS: Pravastatin 20 MG Tablet 10 MG PO (22:40)
[2022-08-21] MEDS: Menthol/Lanolin/Calamine/Znox 113 GM Tube 1 APPLIC TOPICAL ×2 (06:07→22:52)
[2022-08-21] MEDS: Acyclovir 800 MG Tablet PO ×2 (06:08→17:55)
[2022-08-21] MEDS: Senna/Docusate Sodium 1 Tablet 2 TABLET PO (06:08)
[2022-08-21] MEDS: Tacrolimus Anhydrous 1 MG Capsule PO ×2 (06:09→17:55)
--- NOTE | 2022-08-21 06:19 | NURSING ---
Used Butrans patch disposed w/ Miguelina ARITA.
[2022-08-21 07:08] LABS: Absolute Lymphocyte Count 1.18 X10^3/uL (0.83-4.51); Absolute Neutrophil Count 4.1 X10^3/uL (2.0-7.7); Basophil# 0.02 X10^3/uL; Basophil% 0.3 % (0-1); Eosinophil# 0.28 X10^3/uL; Eosinophils% 4.5 % (0-5); Hematocrit 28.2 % (40-54); Hemoglobin 9.4 g/dL (13.0-16.5); Lymphocyte # 1.18 X10^3/ul (0.83-4.51); Lymphocyte % 18.9 % (19-41); Mean Corp Hgb Conc 33.3 g/dL (32-36); Mean Corpuscular Hgb 31.6 pg (27.0-32.0); Mean Corpuscular Volume 94.9 fL (80-94); Mean Platelet Vol. 8.9 fl (6.2-12.0); Monocyte# 0.66 X10^3/uL; Monocyte% 10.6 % (0-10); NRBC Flagged by Analyzer 0 % (0-5); Neutrophil # 4.05 X10^3/uL (2.7-7.7); Neutrophil % 65.1 % (47-70); POSITIVE MORPHOLOGY YES; Platelet Count 248 K/mm3 (150-450); RBC Distribution Width CV 20.7 % (11.6-14.6); RBC Distribution Width SD 71.3 fl (35.1-43.9); Red Blood Count 2.97 M/mm3 (4.6-6.2); White Blood Count 6.2 K/mm3 (4.4-11.0)
[2022-08-21 07:11] LABS: Differential Indicated SCAN CRITERIA MET
[2022-08-21 07:30] LABS: AST(SGOT) 23 U/L (15-37); Alanine Aminotransfer ALT/SGPT 40 U/L (16-61); Albumin, Serum 2.8 g/dL (3.2-5.0); Alkaline Phosphatase 113 U/L (45-117); Anion Gap 5 (5-15); BUN 36 mg/dL (7-18); BUN/Creat Ratio 28.1 RATIO (10-20); Bilirubin, Direct 0.11 mg/dL (0.00-0.30); Calcium,Total 8.8 mg/dL (8.5-10.1); Chloride 106 mmol/L (98-107); Creatinine, Serum 1.28 mg/dL (0.70-1.30); EST Glomerular Filtration Rate 57 mL/min (>60); Est Glom Filt Rate - Afr Amer 69 mL/min (>60); Estimated Creatinine Clearance 44.53 ml/min; Globulin 3.1 g/dL (2.2-4.2); Glucose 105 mg/dL (74-106); Potassium 4.4 mmol/L (3.5-5.1); Protein, Total 5.9 g/dL (6.4-8.2); Sodium Level 136 mmol/L (136-145)
[2022-08-21 07:50] LABS: Anisocytosis 1+
[2022-08-21] MEDS: Vitamin B Comp W-C Capsule 1 CAP PO (08:26)
[2022-08-21] MEDS: Juven (unflavored) Packet 1 PACKET PO ×2 (08:26→17:54)
[2022-08-21] MEDS: Carvedilol 6.25 MG Tablet PO ×2 (08:27→17:55)
[2022-08-21] MEDS: ATOVAQUONE 750 MG/5 ML ORAL.SUSP 1500 MG PO (08:27)
[2022-08-21] MEDS: Tamsulosin HCl 0.4 MG Capsule PO (08:28)
[2022-08-21] MEDS: Calcium Carb/Vitamin D 1 TABLET Tablet PO (08:28)
[2022-08-21] MEDS: Cholecalciferol (VIT D3) 25 MCG TABLET (1,000 UNITS) PO (08:28)
[2022-08-21 13:49] VITALS: BP 112/74; PULSE 83; RESP 16; TEMP 36.4; O2SAT 98
[2022-08-21] MEDS: Rivaroxaban 10 MG Tablet PO (17:54)
[2022-08-21] MEDS: Famotidine 20 MG Tablet PO (17:55)
[2022-08-21] MEDS: Pravastatin 20 MG Tablet 10 MG PO (22:48)
[2022-08-22 05:37] LABS: Hematocrit 27.5 % (40-54)
[2022-08-22] MEDS: Acyclovir 800 MG Tablet PO ×2 (06:37→17:44)
[2022-08-22] MEDS: Tacrolimus Anhydrous 1 MG Capsule PO ×2 (06:39→17:43)
[2022-08-22] MEDS: Tamsulosin HCl 0.4 MG Capsule PO (08:39)
[2022-08-22] MEDS: Vitamin B Comp W-C Capsule 1 CAP PO (08:39)
[2022-08-22] MEDS: Juven (unflavored) Packet 1 PACKET PO ×2 (08:40→17:42)
[2022-08-22] MEDS: Carvedilol 6.25 MG Tablet PO ×2 (08:40→17:47)
[2022-08-22] MEDS: Cholecalciferol (VIT D3) 25 MCG TABLET (1,000 UNITS) PO (08:40)
[2022-08-22] MEDS: Calcium Carb/Vitamin D 1 TABLET Tablet PO (08:40)
[2022-08-22] MEDS: ATOVAQUONE 750 MG/5 ML ORAL.SUSP 1500 MG PO (08:41)
[2022-08-22 13:40] VITALS: BP 95/64; PULSE 87; RESP 18; TEMP 36.5; O2SAT 97
--- NOTE | 2022-08-22 16:18 | CASEMGMT ---
Social Work SW met with pt and in room. Pt/ requesting to DC home on 08/24. IDT agreeable. Pt agreeable to [facility]. No DME needs. to transport. Faxed referral to [facility]. Plan: DC home with 08/24, [facility] Ericka Medina, PIPELINE WELDER FLARING MACHINE OPERATOR
--- NOTE | 2022-08-22 16:54 | DS.PCM_ITS ---
Providers Date of Admission: 08/06/22 Primary Care Physician: REYNA OVALLE Consultations 08/20/22 08:27 Consult: Gastroenterology Routine Consulting Provider: [facility] Reason for Consult: Anemia, blood in stool. EMERGENT Consult: No MD Notified: Yes Date Notified: 08/22/22 Time Notified: 13:09 Method of Notification: phone Comments:: spoke w/ office staff Reason For Visit: RIGHT HIP SURGERY Diagnosis Discharge Diagnosis (1) Debility: Status: Acute Code(s): R53.81 - Other malaise (2) Avascular necrosis of bones of both hips: Status: Acute Code(s): M87.051 - Idiopathic aseptic necrosis of right femur; M87.052 - Idiopathic aseptic necrosis of left femur (3) S/P total right hip arthroplasty: Status: Acute Code(s): Z96.641 - Presence of right artificial hip joint (4) History of DVT (deep vein thrombosis): Status: Acute Code(s): Z86.718 - Personal history of other venous thrombosis and embolism (5) Chronic pain: Status: Chronic Code(s): G89.29 - Other chronic pain (6) BPH (benign prostatic hyperplasia): Status: Acute Code(s): N40.0 - Benign prostatic hyperplasia without lower urinary tract symptoms (7) Hyperlipidemia: Status: Acute Code(s): E78.5 - Hyperlipidemia, unspecified (8) Hypertension: Status: Chronic Code(s): I10 - Essential (primary) hypertension (9) Stroke: Status: Acute Code(s): I63.9 - Cerebral infarction, unspecified Plan 82 year old male with below past medical history significant for 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 * Debility - PT/OT. * Pain - Butrans 5mcg 1 patch topical qweek, Lidoderm patch daily, Diclofenac topical daily, [place] 5/325mg 1 tablet q4h prn pain (1-6), Oxycodone 5mg q4h prn pain (7-10). * Bowel - Miralax 17gm daily, senna/colace 2 tablets bid, soad suds enemia x 1. * Adult immunization - Administer pneumonia vaccine, covid19 vaccine, flu vaccine as appropriate. * DVT prophylaxis - Xarelto 10mg daily thru 09/10/2022. Hold Xarelto due to anemia, if hemoglobin stable after transfusion, restart Xarelto. 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 * Postoperative anemia - Hemoglobin 7.2, transfuse 2 units PRBC per protocol, Lasix 20mg IV between units, H&H 24 hours after rx. Discussed with [facility] information support project manager heme/onc. * Herpes zoster prophylaxis - Acyclovir 800mg bid. * PCP prophylaxis - Mepron 1500mg daily. * Aspergillus prophylaxis - Cresemba 372mg daily. * Calcium deficiency - Calcium D 1 tablet daily. * Coronary artery disease - Coreg 6.25mg bid. * GERD - Famotidine 20mg daily. * Cough - Robitussin 10ml q4h prn. * Hypomagnesemia - Magnesium 133mg tid. * Nausea - Zofran odt 4mg q6h prn. * Hyperlipidemia - Pravastatin 10mg qhs. * BPH - Tamsulosin 0.4mg daily. * Vitamin B deficiency - Vitamin B complex daily. * Vitamin D deficiency - D3 25mcg daily. Medications at Discharge Home Medications acyclovir 800 mg tablet 800 mg PO BID Check with primary doctor 12/30/21 atovaquone 750 mg/5 mL oral suspension 1,500 mg PO DAILY chest 12/30/21 buprenorphine 20 mcg/hour weekly transdermal patch 1 patch transdermal Q7D hip 12/30/21 calcium carbonate 600 mg-vitamin D3 10 mcg (400 unit) chewable tablet (Calcium 600 with Vitamin D3) 1 tab PO DAILY supplement 12/30/21 carvedilol 6.25 mg tablet 6.25 mg PO BID heart 12/30/21 cholecalciferol (vitamin D3) 25 mcg (1,000 unit) capsule 25 mcg PO DAILY supplement 12/30/21 diclofenac sodium 1 % topical gel 4 g topical ONCE joint pain 12/30/21 hydrocodone 10 mg-acetaminophen 325 mg tablet 1 tab PO Q4H PRN PRN CANCER ASSOCIATED PAIN 12/30/21 lidocaine HCl 4 % topical patch 1 patch topical DAILY PRN hip 12/30/21 magnesium oxide-magnesium amino acid chelate 133 mg tablet 133 mg PO TID supplement 12/30/21 peg 3350 17 gram/scoop-sodium chloride-potassium citrate oral kit 1 ea PO DAILY constipation 12/30/21 pravastatin 10 mg tablet 10 mg PO DAILY cholesterol 12/30/21 rivaroxaban 10 mg tablet 10 mg PO DAILY blood thinner 12/30/21 tacrolimus 0.5 mg capsule, immediate-release 1 mg PO BID Stem cell 12/30/21 tamsulosin 0.4 mg capsule 0.4 mg PO DAILY bladder 12/30/21 vitamin B complex (B Complex-Vitamin B12 tablet) 1 tab PO DAILY supplement 12/30/21 docusate sodium 100 mg capsule (Colace) 100 mg PO BID STOOL SOFTENER 08/06/22 famotidine 20 mg tablet 20 mg PO DAILY@1800 ACID REFLUX 08/06/22 isavuconazonium sulfate 186 mg capsule (Cresemba) 372 mg PO DAILY Check with primary doctor 08/06/22 ruxolitinib 10 mg tablet (Jakafi) 10 mg PO BID ACUTE MYELOID LEUKEMIA IN REMISSION 08/06/22 oxycodone 5 mg tablet 5 mg PO Q4H PRN Pain (Scale Score 7-10) 7 days #42 tabs 08/22/22 sennosides 8.6 mg-docusate sodium 50 mg tablet (Stool Softener-Stimulant Laxativ e) 2 tab PO BID 30 days #120 tabs 08/22/22 Hospital Course Operations total hip replacement (Right.) Procedures None Summary of Care Provided Minutes Spent on Discharge: 35 Hospital Course: 82 year old male with below past medical history significant for 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 08/19/2022 stool occult blood positive. Consider colonoscopy as outpatient. Discharge home with 08/24/2022, [facility]. Physical Exam Const alert General Appearance: cooperative HEENT normocephalic Eyes PERRL and EOMs intact bilaterally Neck supple, no JVD and no carotid bruits Resp normal respiratory effort, normal air movement and clear to auscultation bilaterally Cardio regular rate and regular rhythm GI normal to inspection, nondistended, normoactive bowel sounds, non-tender and non-distended Extremity normal capillary refill General Extremity: Negative for edema Skin no rashes or lesions noted General Skin Exam: no breakdown Psych affect normal Appearance: appropriate Weight / BMI Weight Weight: 75.024 kg Body Mass Index (BMI) 25.0 ABG / Lab / Microbiology Data Result Diagrams: 08/22/22 05:21 08/21/22 06:46 Laboratory: Laboratory Results - last 24 hr 08/22/22 05:21: Hgb 9.0 L, Hct 27.5 L Microbiology: Microbiology 08/19/22 10:45 Stool Stool Occult Blood (ANTHONY) - Final Occult Blood Positive 08/10/22 Unknown Nasal Secretion SARS-CoV-2 Antigen (Rapid) - Final 08/08/22 13:18 Nasal Secretion SARS-CoV-2 Antigen (Rapid) - Final D/C Instructions Discharge Diet: No restrictions Discharge Activity: Return to Normal Activity, May Shower and Use Walker Weight Bearing Status: Weight bearing as tolerated Call your doctor if you observe: Fever of 101 or Higher, Inability to urinate, Inability to have a bowel movement, Shortness of breath, Dizziness, Fainting spells, Swelling in the ankles, Chest pain and Uncontrolled pain Additional Instructions: Discharge home with 08/24/2022, [facility]. Please Follow Up With: [facility] Meaningful Use Info Meaningful Use Diagnoses (Choose all that apply): None applicable Discharge Plan Admission Admit Date/Time: 08/06/22 15:00 Attending Provider: Konrad Mcneil Chi Primary Care Provider: REYNA OVALLE Discharge Orders/Prescriptions Prescriptions: New sennosides-docusate sodium [Stool Softener-Stimulant Laxat] 8.6-50 mg Tablet 2 tab PO BID 30 Days Qty: 120 0RF oxycodone 5 mg Tablet 5 mg PO Q4H PRN (Reason: Pain (Scale Score 7-10)) 7 Days Qty: 42 0RF Continued acyclovir 800 mg tablet 800 mg PO BID atovaquone 750 mg/5 mL suspension 1,500 mg PO DAILY Rx Instructions: must administer with food, preferably a high-fat meal buprenorphine 20 mcg/hour patch weekly 1 patch transdermal Q7D Calcium 600 with Vitamin D3 600 mg-10 mcg (400 unit) tablet,chewable 1 tab PO DAILY carvedilol 6.25 mg tablet 6.25 mg PO BID Rx Instructions: must administer with a meal/food cholecalciferol (vitamin D3) 25 mcg (1,000 unit) capsule 25 mcg PO DAILY diclofenac sodium 1 % gel 4 g topical ONCE Rx Instructions: apply to single knee, ankle, foot; for foot includes sole/toes/top of foot hydrocodone-acetaminophen 10-325 mg tablet 1 tab PO Q4H PRN PRN (Reason: CANCER ASSOCIATED PAIN) lidocaine HCl 4 % adhesive patch,medicated 1 patch topical DAILY PRN (Reason: hip) magnesium oxide-Mg AA chelate 133 mg tablet 133 mg PO TID peg 3350-sod chlor-[place]ass cit 17 gram/ scoop kit 1 ea PO DAILY pravastatin 10 mg tablet 10 mg PO DAILY rivaroxaban 10 mg tablet 10 mg PO DAILY Rx Instructions: for 35 days tacrolimus 0.5 mg capsule 1 mg PO BID tamsulosin 0.4 mg capsule 0.4 mg PO DAILY vitamin B complex [B Complex-Vitamin B12] Tablet 1 tab PO DAILY famotidine 20 mg Tablet 20 mg PO DAILY@1800 docusate sodium [Colace] 100 mg Capsule 100 mg PO BID Jakafi 10 mg Tablet 10 mg PO BID Cresemba 186 mg Capsule 372 mg PO DAILY Discontinued guaifenesin 100 mg/5 mL Liquid 200 mg PO Q4H PRN (Reason: Cough) ondansetron 4 mg Tablet,Disintegrating 4 mg PO Q6H PRN (Reason: Nausea) oxycodone 5 mg Tablet 5 mg PO Q4H PRN (Reason: Pain (Scale Score 7-10)) Referrals / Follow Up: REYNA OVALLE [Other] Disposition Disposition (needs filled in before D/C Order can be placed): Home, Self Care
[2022-08-22] MEDS: Rivaroxaban 10 MG Tablet PO (17:42)
[2022-08-22] MEDS: Arthritis Pain Compound 60 CLICK TUBE TOPICAL (17:42)
[2022-08-22] MEDS: Senna/Docusate Sodium 1 Tablet 2 TABLET PO (17:44)
[2022-08-22] MEDS: Famotidine 20 MG Tablet PO (17:45)
[2022-08-22] MEDS: Pravastatin 20 MG Tablet 10 MG PO (20:13)
[2022-08-22 20:15] VITALS: PULSE 84; RESP 14; O2SAT 97
[2022-08-23] MEDS: Senna/Docusate Sodium 1 Tablet 2 TABLET PO (05:16)
[2022-08-23] MEDS: Tacrolimus Anhydrous 1 MG Capsule PO ×2 (05:16→17:45)
[2022-08-23] MEDS: Acyclovir 800 MG Tablet PO ×2 (05:17→17:29)
[2022-08-23 05:30] LABS: Hematocrit 26.8 % (40-54); Hemoglobin 8.9 g/dL (13.0-16.5)
[2022-08-23] MEDS: Tamsulosin HCl 0.4 MG Capsule PO (08:23)
[2022-08-23] MEDS: Cholecalciferol (VIT D3) 25 MCG TABLET (1,000 UNITS) PO (08:23)
[2022-08-23] MEDS: ATOVAQUONE 750 MG/5 ML ORAL.SUSP 1500 MG PO (08:23)
[2022-08-23] MEDS: Carvedilol 6.25 MG Tablet PO ×2 (08:23→17:45)
[2022-08-23] MEDS: Vitamin B Comp W-C Capsule 1 CAP PO (08:23)
[2022-08-23] MEDS: Calcium Carb/Vitamin D 1 TABLET Tablet PO (08:23)
[2022-08-23] MEDS: Juven (unflavored) Packet 1 PACKET PO (08:24)
[2022-08-23 15:00] VITALS: BMI 24.7
[2022-08-23 15:34] VITALS: BP 115/78; PULSE 82; RESP 16; TEMP 36.8; O2SAT 96
--- NOTE | 2022-08-23 15:50 | NURSING ---
Dressing to r hip removed. Incision well approximated. No drainage or redness noted. Steristrips intact. Pt tolerated dressing removal well.
[2022-08-23] MEDS: Famotidine 20 MG Tablet PO (17:29)
[2022-08-23] MEDS: Rivaroxaban 10 MG Tablet PO (17:29)
--- NOTE | 2022-08-23 17:54 | CON.PCM.GI_ITS ---
HPI Consult Data Date of Consult: 08/23/22 HPI Narrative Reason for Consultation: Anemia HPI Narrative: MELLO SOLIZ, is a 82 M with past medical history of leukemia status post stem cell transplant, on tacrolimus, h/o VTE, on Xarelto, DVT, CVA status post right hip replacement. After surgery his hemoglobin was 11 and has been slowly drifting down to 8.9. His stools were checked and they were positive for blood. He does not know when the last time he had a colonoscopy. He has never had an upper endoscopy. His weight has been slightly down. He denies any chest pain or shortness of breath. Patient said he is scheduled to be discharged tomorrow. I was asked to see him due to anemia and fecal positive stools. [facility] Medical History (Updated 08/23/22 @ 17:[address] Baumann Friend, DO) Avascular necrosis of bones of both hips BPH (benign prostatic hyperplasia) Chronic pain Debility History of acute myeloid leukemia History of DVT (deep vein thrombosis) Hyperlipidemia Hypertension Leukemia Stroke Home Medications acyclovir 800 mg tablet 800 mg PO BID Check with primary doctor 12/30/21 [History Last Taken 02/07/22] atovaquone 750 mg/5 mL oral suspension 1,500 mg PO DAILY chest 12/30/21 [History Last Taken 02/07/22] buprenorphine 20 mcg/hour weekly transdermal patch 1 patch transdermal Q7D hip 12/30/21 [History Last Taken 02/02/22] calcium carbonate 600 mg-vitamin D3 10 mcg (400 unit) chewable tablet (Calcium 600 with Vitamin D3) 1 tab PO DAILY supplement 12/30/21 [History Last Taken 02/07/22] carvedilol 6.25 mg tablet 6.25 mg PO BID heart 12/30/21 [History Last Taken 02/07/22] cholecalciferol (vitamin D3) 25 mcg (1,000 unit) capsule 25 mcg PO DAILY supplement 12/30/21 [History Last Taken 02/07/22] diclofenac sodium 1 % topical gel 4 g topical ONCE joint pain 12/30/21 [History Last Taken 02/07/22] hydrocodone 10 mg-acetaminophen 325 mg tablet 1 tab PO Q4H PRN PRN CANCER ASSOCIATED PAIN 12/30/21 [History Last Taken 02/07/22] lidocaine HCl 4 % topical patch 1 patch topical DAILY PRN hip 12/30/21 [History Last Taken 02/07/22] magnesium oxide-magnesium amino acid chelate 133 mg tablet 133 mg PO TID supplem ent 12/30/21 [History Last Taken 02/07/22] peg 3350 17 gram/scoop-sodium chloride-potassium citrate oral kit 1 ea PO DAILY constipation 12/30/21 [History Last Taken Unknown] pravastatin 10 mg tablet 10 mg PO DAILY cholesterol 12/30/21 [History Last Taken 02/06/22] rivaroxaban 10 mg tablet 10 mg PO DAILY blood thinner 12/30/21 [History Last Taken 02/06/22] tacrolimus 0.5 mg capsule, immediate-release 1 mg PO BID Stem cell 12/30/21 [History Last Taken 02/07/22] tamsulosin 0.4 mg capsule 0.4 mg PO DAILY bladder 12/30/21 [History Last Taken 02/07/22] vitamin B complex (B Complex-Vitamin B12 tablet) 1 tab PO DAILY supplement 12/30/21 [History Last Taken 02/07/22] docusate sodium 100 mg capsule (Colace) 100 mg PO BID STOOL SOFTENER 08/06/22 [History Last Taken Unknown] famotidine 20 mg tablet 20 mg PO DAILY@1800 ACID REFLUX 08/06/22 [History Last Taken Unknown] isavuconazonium sulfate 186 mg capsule (Cresemba) 372 mg PO DAILY Check with primary doctor 08/06/22 [History Last Taken Unknown] ruxolitinib 10 mg tablet (Jakafi) 10 mg PO BID ACUTE MYELOID LEUKEMIA IN REMISSION 08/06/22 [History Last Taken Unknown] oxycodone 5 mg tablet 5 mg PO Q4H PRN Pain (Scale Score 7-10) 7 days #42 tabs 08/22/22 [Rx Last Taken Unknown] sennosides 8.6 mg-docusate sodium 50 mg tablet (Stool Softener-Stimulant Laxative) 2 tab PO BID 30 days #120 tabs 08/22/22 [Rx Last Taken Unknown] Allergy/AdvReac Type Severity Reaction Status Date / Time Sulfa (Sulfonamide Allergy Other Verified 12/30/21 14:24 Antibiotics) Family History (Updated 08/06/22 @ 18:[address] Konrad Mcneil MD) Father Congestive heart failure Glaucoma Skin cancer Sister Uterine cancer Surgical History (Updated 08/06/22 @ 18:[address] Konrad Mcneil MD) H/O stem cell transplant History of hernia repair History of tonsillectomy History of total right hip arthroplasty History of wisdom tooth extraction Social History (Updated 08/06/22 @ 18:[address] Konrad Mcneil MD) household members: spouse Smoking Status: Never smoker alcohol intake: former substance use type: does not use ROS Constitutional Constitutional: Denies chills, fever(s) or weight gain ENT HEENT: Denies headache(s), nasal congestion or nasal discharge Cardiovascular Cardiovascular: Denies chest pain or palpitations Respiratory/Chest Respiratory/Chest: Denies cough, excessive phlegm production or shortness of breath with exertion Gastrointestinal Gastrointestinal: Reports constipation; Denies abdominal pain, nausea or vomiting Genitourinary Genitourinary: Denies dysuria Musculoskeletal Musculoskeletal: Reports other Details: Right hip sore. ; Denies joint pain or joint swelling Integumentary Integumentary: Denies rash or wounds Neurologic Neurologic: Denies focal weakness, numbness or tingling Psychiatric Psychiatric: Denies anxiety, auditory hallucinations, depression, homicidal ideation or suicidal ideation Physical Exam Const alert General Appearance: cooperative HEENT normocephalic Eyes PERRL and EOMs intact bilaterally Neck supple, no JVD and no carotid bruits Resp normal respiratory effort, normal air movement and clear to auscultation bilaterally Cardio regular rate and regular rhythm GI normal to inspection, nondistended, normoactive bowel sounds, non-tender and non-distended Extremity normal capillary refill General Extremity: Negative for edema Skin no rashes or lesions noted General Skin Exam: no breakdown Psych affect normal Appearance: appropriate Lab / Micro Data Result Diagrams: 08/23/22 05:11 08/21/22 06:46 Labs: Laboratory Results - last 24 hr 08/23/22 05:11: Hgb 8.9 L, Hct 26.8 L Assessment & Plan Assessment/Plan (1) Anemia: PLAN: Differential diagnosis for his anemia does include anticoagulant induced gastritis, peptic ulcer disease, angiodysplasias secondary to stop ration, hiatal hernia with Alfredo's erosions, H. pylori associated gastritis, neoplasia. Patient does not want to undergo any endoscopic procedures at this time. He wants to follow-up with his oncologist because he says they keep a very close eye on his blood counts. I told him that if he wanted that and we can see him as an outpatient and he can possibly get a capsule endoscopy if he does not want the invasive. He said that he was okay with this plan. Recommend to check his blood count prior to be DC'd tomorrow. If his blood count still continues to drop I think he should undergo at least an upper endoscopy to see if there is a upper GI source prior to him being DC'd. Charges/Coding Visit Charges Inpatient E&M: 70035 SNF Init L2
[2022-08-23 20:20] VITALS: PULSE 84; RESP 16; O2SAT 97
[2022-08-23] MEDS: Pravastatin 20 MG Tablet 10 MG PO (20:31)
[2022-08-23] MEDS: Menthol/Lanolin/Calamine/Znox 113 GM Tube 1 APPLIC TOPICAL (20:33)
[2022-08-24] MEDS: Acyclovir 800 MG Tablet PO (05:22)
[2022-08-24] MEDS: Tacrolimus Anhydrous 1 MG Capsule PO (05:22)
[2022-08-24 05:32] LABS: Hematocrit 27.5 % (40-54); Hemoglobin 9.2 g/dL (13.0-16.5)
[2022-08-24 07:35] VITALS: PULSE 78; RESP 16; O2SAT 97
--- NOTE | 2022-08-24 08:33 | CASEMGMT ---
Social Work BIMS () and PHQ-9 () completed for MDS assessment. Ericka Medina MSW [employer]
[2022-08-24] MEDS: Calcium Carb/Vitamin D 1 TABLET Tablet PO (08:52)
[2022-08-24] MEDS: Cholecalciferol (VIT D3) 25 MCG TABLET (1,000 UNITS) PO (08:52)
[2022-08-24] MEDS: Tamsulosin HCl 0.4 MG Capsule PO (08:52)
[2022-08-24] MEDS: ATOVAQUONE 750 MG/5 ML ORAL.SUSP 1500 MG PO (08:53)
[2022-08-24] MEDS: Carvedilol 6.25 MG Tablet PO (08:53)
[2022-08-24] MEDS: Vitamin B Comp W-C Capsule 1 CAP PO (08:53)
[2022-08-24 09:39] VITALS: BP 120/79; PULSE 85; RESP 18; TEMP 36.9; O2SAT 98
== END 2022-08-24 09:41 | disposition home or self-care (01) | DRG 560 ==
PROVIDERS: Admitting Provider Family Medicine Geriatric Medicine; Visit Provider Family Medicine Geriatric Medicine
DX: Z47.1 Aftercare following joint replacement surgery (principal); M87.051 Idiopathic aseptic necrosis of right femur; C92.00 Acute myeloblastic leukemia, not having achieved remission; D89.813 Graft-versus-host disease, unspecified; Z94.81 Bone marrow transplant status; T86.5 Complications of stem cell transplant; M87.052 Idiopathic aseptic necrosis of left femur; E78.5 Hyperlipidemia, unspecified; I10 Essential (primary) hypertension; E55.9 Vitamin D deficiency, unspecified; I25.10 Atherosclerotic heart disease of native coronary artery without angina pectoris; K21.9 Gastro-esophageal reflux disease without esophagitis; G89.29 Other chronic pain; N40.0 Benign prostatic hyperplasia without lower urinary tract symptoms; Z79.52 Long term (current) use of systemic steroids; Z79.899 Other long term (current) drug therapy; Z86.718 Personal history of other venous thrombosis and embolism; Z96.641 Presence of right artificial hip joint
CPT/HCPCS: 36415; 76705; 80048; 80074; 80076; 82274; 85014; 85018; 85025; 86850; 86900; 86901; 86920; 86922; 87426; 87811; 97110; 97112; 97116; 97162; 97165; 97530; 97535; 97802; J1940

== ENCOUNTER 2022-08-07 12:40 | Outpatient (CLI) | payer MEDICARE, SELFPAY ==
[2022-08-07] VITALS (8 sets, daily range): BP systolic 100–142; BP diastolic 68–97; PULSE 79–87; RESP 17–19; TEMP 36.4–36.8; O2SAT 91–99
[2022-08-07] MEDS: Furosemide 20 MG/2 ML VIAL IV (16:06)
--- NOTE | 2022-08-07 16:57 | NURSING ---
Marta ARITA from TCU came over to give pt soap jp enema d/t constipation. pt stated that he could not wait until he was done with his units of blood. pt tolerated SSE well. placed on bedside commode and is having results.
== END 2022-08-07 19:00 | disposition home or self-care (01) ==
LOC: MEDOUTP 12:51 → MS3 12:52
PROVIDERS: Referring Provider Family Medicine Geriatric Medicine; Visit Provider Family Medicine Geriatric Medicine
DX: D62 Acute posthemorrhagic anemia (principal); Y83.1 Surgical operation with implant of artificial internal device as the cause of abnormal reaction of the patient, or of later complication, without mention of misadventure at the time of the procedure
CPT/HCPCS: 36430; 86850; 86900; 86901; 86920; 86922; J7040; P9016; J1940

== ENCOUNTER 2022-10-06 11:30 | Outpatient (RCR) | payer MEDICARE, SELFPAY ==
--- NOTE | 2022-09-21 12:42 | HP.PTEVAL_ITS ---
Patient's Visit Information Visit Information Visit Information: MELLO SOLIZ is a 82 year old M referred to Physical Therapy by Dr. Konrad Mcneil MD with a diagnosis of Right HIP NECROSIS surgery 08/02. Date of Evaluation: 09/08/22 Physical Therapist: Rebeca Avery PT, Cert MDT Visit Plan Frequency: 2-3x /Week Duration: 4-6 Weeks Plan: Progress R hip gait and strength, more WB to tolerance. Steps and function. Careful with hip precautions. 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 NO TRAVEL SINCE THR BUT HAS BEEN WORKING. Present symptoms: PATIENT DENIES PAIN IN R LE FOR LAST 10 DAYS OR SO. NOT TAKING ANY PAIN MEDICATION. Present since: R HIP PAIN AND LIMITATIONS STARTED A COUPLE YEARS AGO AND TREATMENT WAS DELAYED DUE TO LEUKEMIA. REALLY STARTED LIMITING WALKING ABOUT 6 MONTHS AGO. Pain Scale: N/A Currently: 0/10 Is it getting better, worse or staying the same: GETTING BETTER. NO PAIN AND GETTING STRONGER. Commenced as a result of: TREATMENT OF LEUKEMIA - THINNING OF BONES. Disturbed sleep: NO Previous history/Previous treatment: R HIP STEROID INJECTIONS Treatment this episode: S/P R THR 08/02/22 AND PATIENT ALSO REPORTS SCREW PLACEMENT. TCU AT [facility] ABOUT 2 WKS. Gait: USING FWW TO GET AROUND TOE TOUCH WEIGHT BEARING. Accidents: NO Unexplained weight loss: NO Imaging: PATIENT REPORTS IMAGING BEFORE LAST SURGICAL FOLLOW UP SHOWED [facility]. PMH/Recent major surgery: DX'D WITH leukemia JAN 2021 TREATED WITH STEM CELL AUGUST 2021. WAS ALSO TREATED FOR LEUKEMIA IN 2011. HTN. HIGH CHOLESTEROL. H/O L LE BLOOD CLOT 2011 - ON BLOOD THINNER. PATIENT REPORTS HE ALSO NEEDS A LEFT HIP REPLACEMENT AND HE DOESN'T WANT TO OVERUSE IT MORE THAN NECESSARY. OTHER: PATIENT REPORTS HE IS ONLY ALLOWED TO TOE TOUCH WEIGHT BEAR ON RLE. FOLLOW UP PENDING WITH SURGEON AT [facility] TOMORROW. Objective Objective: GAIT: THIS PATIENT AMBULATES INDEP'LY INTO PT TODAY WITH A FWW TTWB ON R LE. CADANCE IS SLOW BUT CONTINUOUS. R hip flex AROM: To at least 90 deg (not tested past 90 deg due to THR precautions). R hip ext AROM: -20 deg R knee flexion AROM: 100+ DEG in sitting. R knee ext AROM: FULL R hip flex Strength at least 3/5 to 90 deg R hip ext Strength 3-/5 R knee flex MMT 3+/5 R knee ext MMT 3+/5 R ankle MMT - 3+/5 L MMT: hip flex 4/5, knee flex 4/5, knee ext 4/5, hip ext 4/5, hip abd 4/5 Sensory deficit: EKTA LE LIGHT TOUCH SENSATION GROSSLY INTACT. Other: See TUG Test time and STS Test results below. Balance/Special Test Scores Lower Extremity Functional Score: 22 TUG Test Time Seconds: 37.54 30 Second Chair Rise Test Seconds: 6 Goals Goal 1:: PATIENT WILL BE INDEP AND SAFE WITH GAIT WITH LEAST AD AND WB STATUS ORDERED BY PHYSICIAN X 1200 PLUS FEET FOR COMMUNITY AMBULATION Goal Time Frame: 6-8 Weeks Goal 2:: PATIENT WILL BE INDEP WITH GAIT UP AND DOWN STEPS WITH LEAST AD/UE ASSIST AND WB STATUS ORDERED BY PHYSICIAN RECIPRICALLY FOR HOME, WORK AND COMMUNITY MOBILITY NEEDED. Goal Time Frame: 6-8 Weeks Goal 3:: INCREASE FUNCTIONAL ROM OF R LE TO EASE ADL'S Goal Time Frame: 6-8 Weeks Goal 4:: IMPROVE FUNCTIONAL STRENGTH OF R LE TO EASE ADL'S Goal Time Frame: 6-8 Weeks Goal 5:: PATIENT WILL BE INDEP WITH A HEP FOR CONTINUED IMPROVEMENT ONCE FORMAL PHYSICAL THERAPY CONCLUDES. Goal Time Frame: 6-8 Weeks Anticipated Interventions Patient/Client Instruction: Educate patient on: Condition, Plan of Care and Risk Factors For the Purpose of:: To improve self management Therapeutic Exercise to Include: Strength training, Body mechanics, Postural training, Flexibilty training, Gait and locomotor training and Neuromotor development For the Purpose of:: To increase ROM, To improve muscle performance and motor function, To increase tolerance to activity/condition/position, To improve ability of physical actions for home/community/work/leisure and To improve gait and locomotor functions Text: Thank you for the opportunity to evaluate your patient. For Medicare and Medicare HMO plans, please review the plan of care and approve it. It will need to be FAXED BACK to us at [phone] for Medicare purposes. For Medicare only, by signing this I certify the plan of care. Please let me know if there are questions or concerns regarding this plan of care. Physician Signature: Date:
--- NOTE | 2022-10-06 12:18 | HP.PTDCSUM ---
Discharge Summary D/C summary: It has been my pleasure to treat MELLO SOLIZ referred by Dr. Konrad Mcneil MD, with the diagnosis of Right HIP NECROSIS surgery 08/02 for a total of 9 visit(s). Discharge Date: 10/06/22 Please see the following information for a summary of their discharge status. Subjective Subjective: No pain worth mentioning. Hip feels OK. L hip might need done to. No AD needed to ambulate. Steps are no problem. To doctor in about 4 weeks. Activities: Life is normal activity samuels. Sleep is great. Plans to continue exercise. Overall Improvement % Improvement: 100 Objective Objective/Function: walks through clinic without antalgia and without gait deviations and no need for AD. 33# hip flexion R and 64 hip ext seated. steps with one rail reciprocally without pain or problems. 10 ext R hip and 100 flexion Goals Goal 1:: PATIENT WILL BE INDEP AND SAFE WITH GAIT WITH LEAST AD AND WB STATUS ORDERED BY PHYSICIAN X 1200 PLUS FEET FOR COMMUNITY AMBULATION Goal Progress: Goal Met Goal 2:: PATIENT WILL BE INDEP WITH GAIT UP AND DOWN STEPS WITH LEAST AD/UE ASSIST AND WB STATUS ORDERED BY PHYSICIAN RECIPRICALLY FOR HOME, WORK AND COMMUNITY MOBILITY NEEDED. Goal Progress: Goal Met Goal 3:: INCREASE FUNCTIONAL ROM OF R LE TO EASE ADL'S Goal Progress: Goal Met Goal 4:: IMPROVE FUNCTIONAL STRENGTH OF R LE TO EASE ADL'S Goal Progress: Goal Met Goal 5:: PATIENT WILL BE INDEP WITH A HEP FOR CONTINUED IMPROVEMENT ONCE FORMAL PHYSICAL THERAPY CONCLUDES. Goal Progress: gym Plan Plan: d/c to gym , copy given, 3x/week recommended. D/C Information d/c sentence: If there are questions or concerns regarding this patient's physical therapy, please feel free to call me at [phone]. Thank you for the referral of this patient. Sincerely, Josué Maria, DPT, OCS, CSCS Balance/Gait/Functional tests Balance/Special Test Scores Lower Extremity Functional Score: 22 TUG Test Time Seconds: 9 Tug Test: <10 sec.=free mobile 30 Second Chair Rise Test Seconds: 6 WOMAC Total Score: 20 WOMAC Percentage: [phone]
== END 2022-10-06 13:13 | disposition home or self-care (01) ==
LOC: PT 11:30
PROVIDERS: Referring Provider Family Medicine Geriatric Medicine; Visit Provider Family Medicine Geriatric Medicine
DX: M87.051 Idiopathic aseptic necrosis of right femur (principal); M87.052 Idiopathic aseptic necrosis of left femur; Z96.641 Presence of right artificial hip joint
CPT/HCPCS: 97110; 97162; 97164

== ENCOUNTER 2023-05-10 09:05 | Outpatient (RCR) | payer MEDICARE, SELFPAY ==
[2023-05-10 10:01] LABS: Absolute Neutrophil Count 3.4 X10^3/uL (2.0-7.7); Basophil# 0.03 X10^3/uL; Basophil% 0.6 % (0-1); Eosinophil# 0.19 X10^3/uL; Eosinophils% 3.5 % (0-5); Hematocrit 33.6 % (40-54); Hemoglobin 11.2 g/dL (13.0-16.5); Lymphocyte % 20.4 % (19-41); Mean Corp Hgb Conc 33.3 g/dL (32-36); Mean Corpuscular Hgb 33.7 pg (27.0-32.0); Mean Corpuscular Volume 101.2 fL (80-94); Monocyte# 0.63 X10^3/uL; Monocyte% 11.7 % (0-10); NRBC Flagged by Analyzer 0 % (0-5); Neutrophil # 3.43 X10^3/uL (2.7-7.7); Neutrophil % 63.4 % (47-70); Platelet Count 345 K/mm3 (150-450); RBC Distribution Width CV 14.7 % (11.6-14.6); RBC Distribution Width SD 55.5 fl (35.1-43.9); Red Blood Count 3.32 M/mm3 (4.6-6.2); White Blood Count 5.4 K/mm3 (4.4-11.0)
[2023-05-10 11:02] LABS: Anion Gap 5 (5-15); BUN 26 mg/dL (7-18); BUN/Creat Ratio 18.2 RATIO (10-20); Chloride 107 mmol/L (98-107); Creatinine, Serum 1.43 mg/dL (0.70-1.30); EST Glomerular Filtration Rate 50 mL/min (>60); Est Glom Filt Rate - Afr Amer 61 mL/min (>60); Glucose 98 mg/dL (74-106); Potassium 4.5 mmol/L (3.5-5.1); Sodium Level 139 mmol/L (136-145)
== END 2023-06-03 18:00 | disposition home or self-care (01) ==
LOC: LAB 09:05
DX: Z94.81 Bone marrow transplant status (principal)
CPT/HCPCS: 36415; 80048; 85025